=== PATIENT | female | born 1955 | race Caucasian/White ===

== ENCOUNTER 2019-06-01 08:55 | Inpatient (IN) | payer OTHER, SELFPAY ==
[2019-06-01] MEDS ORDERED: ALBUTEROL 2.5 MG/3 ML NEB SOL ONE (09:10)
[2019-06-01] MEDS ORDERED: IPRATROPIUM BROM 0.5MG/2.5ML ONE (09:10)
[2019-06-01] MEDS ORDERED: METHYLPREDNISOLONE 125 MG INJ ONE (09:22)
[2019-06-01] MEDS ORDERED: HYDROCODONE/CHLORPHEN 5 ML/OSYR ONE (09:47)
[2019-06-01 09:53] LABS: Absolute Lymphocytes (CBC) 2.4 K/uL (0.7-4.9); Basophils % 0.7 % (0-1.3); Hematocrit 47.4 % (36.0-45.0); Lymphocytes % 16.1 % (15.3-44.8); MPV 9.3 fL (7.6-11.3); RBC Red Blood Cell Count 5.43 M/uL (3.86-4.86)
[2019-06-01 09:54] LABS: Protime INR 1.12
--- NOTE | 2019-06-01 09:54 | RAD REPORT ---
EXAM DESCRIPTION: RAD - Chest Single View - 06/01/2019 9:44 am CLINICAL HISTORY: Productive cough;SOB Chest pain. COMPARISON: No comparisons FINDINGS: Portable technique limits examination quality. The lungs are mildly emphysematous but grossly clear. The heart is normal in size. No displaced fract ures. IMPRESSION: Mild COPD.
[2019-06-01 10:11] LABS: ALT/SGPT 43 U/L (12-78); AST/SGOT 43 U/L (15-37); Albumin 3.6 g/dL (3.4-5.0); Alkaline Phosphatase 106 U/L (45-117); BUN Blood Urea Nitrogen 8 mg/dL (7-18); Bicarbonate 31 mmol/L (21-32); Bilirubin Direct 0.5 mg/dL (0-0.2); Bilirubin Total 1.3 mg/dL (0.2-1.0); Glucose Level 144 mg/dL (74-106); Magnesium 2.4 mg/dL (1.8-2.4); NT PRO-BNP 176 pg/mL (<125); Potassium 3.6 mmol/L (3.5-5.1); Protein, Total 8.8 g/dL (6.4-8.2); Sodium Level 139 mmol/L (136-145); Troponin (Emerg Dept Use Only) < 0.02 ng/mL (0.0-0.045)
[2019-06-01] MEDS ORDERED: levoFLOXacin 750 MG TAB ONE (10:44)
[2019-06-01] MEDS ORDERED: ALBUTEROL 2.5 MG/3 ML NEB SOL NEB PRN (10:53)
--- NOTE | 2019-06-01 10:53 | ER ---
Nurse's Notes [facility] Name: Leona Blackman Age: 64 yrs Sex: Female : 1955 Arrival Date: 06/01/2019 Time: 08:56 Bed 17 Private MD: Diagnosis: Chronic obstructive pulmonary disease with acute lower respiratory infection;Hypoxemia Presentation: 06/01 09:15 Presenting complaint: Patient states: cough, congestion for 10 days, intermittent iw fever/chills, rib pain, was sent by Gretchen Redd for low O2 sat. Transition of care: patient was not received from another setting of care. Onset of symptoms was May 22, 2019. Risk Assessment: Do you want to hurt yourself or someone else? Patient reports no desire to harm self or others. Initial Sepsis Screen: Does the patient meet any 2 criteria? HR > 90 bpm. Does the patient have a suspected source of infection? Yes: Productive cough/pneumonia. Care prior to arrival: None. 09:15 Method Of Arrival: Wheelchair iw 09:15 Acuity: DELVIN 2 iw Historical: - Allergies: 09:15 Codeine; iw - Home Meds: 09:23 aspirin 81 mg Oral TbEC 1 tab once daily [Active]; omeprazole 40 mg Oral cpDR 1 cap iw once daily [Active]; - PMHx: 09:23 Cancer, Breast; iw - PSHx: 09:23 partial mastectomy-L; Hysterectomy; Tonsillectomy; iw - Immunization history:: Adult Immunizations not up to date. - Social history:: Smoking status: Patient uses tobacco products, unknown amount. - Ebola Screening: : Patient negative for fever greater than or equal to 101.5 degrees Fahrenheit, and additional compatible Ebola Virus Disease symptoms Patient denies exposure to infectious person Patient denies travel to an Ebola-affected area in the 21 days before illness onset No symptoms or risks identified at this time. Screenin:11 Abuse screen: Denies threats or abuse. Denies injuries from another. Nutritional jl7 screening: No deficits noted. Tuberculosis screening: No symptoms or risk factors identified. Fall Risk IV access (20 points). Total Sood Fall Scale indicates No Risk (0-24 pts). Assessment: 09:15 General: Appears in no apparent distress. uncomfortable, Behavior is calm, cooperative, em appropriate for age, Reports fever for > 3 days. Pain: Denies pain. Neuro: Level of Consciousness is awake, alert, obeys commands, Oriented to person, place, time, situation, Appropriate for age. Cardiovascular: Capillary refill < 3 seconds Patient's skin is warm and dry. Rhythm is sinus rhythm. Respiratory: Reports shortness of breath at rest on exertion cough that is productive, pain with cough since 1 week Airway is patent Respiratory effort is even, unlabored, Respiratory pattern is regular, symmetrical, Breath sounds with wheezes bilaterally. GI: Abdomen is round non-distended, Patient currently denies nausea, vomiting. Derm: Skin is intact, is healthy with good turgor, Skin is pink, warm \T\ dry. Musculoskeletal: Capillary refill < 3 seconds, Range of motion: intact in all extremities. 09:57 Reassessment: Patient appears in no apparent distress at this time. Patient and/or em family updated on plan of care and expected duration. Pain level reassessed. Patient is alert, oriented x 3, equal unlabored respirations, skin warm/dry/pink. Patient states symptoms have improved. 11:00 Reassessment: Patient appears in no apparent distress at this time. Patient and/or em family updated on plan of care and expected duration. Pain level reassessed. Patient is alert, oriented x 3, equal unlabored respirations, skin warm/dry/pink. 12:10 Reassessment: Patient appears in no apparent distress at this time. Patient and/or em family updated on plan of care and expected duration. Pain level reassessed. Patient is alert, oriented x 3, equal unlabored respirations, skin warm/dry/pink. Patient denies pain at this time. Patient states feeling better. Patient states symptoms have improved. Vital Signs: 09:13 BP 173 / 89; Pulse 100; Resp 20 S; Temp 98.0; Pulse Ox 85% on R/A; Weight 113.4 kg; iw Height 5 ft. 4 in. (162.56 cm); Pain 0/10; 09:15 Pulse Ox 92% on 2 lpm NC; em 10:28 BP 141 / 68; Pulse 102; Resp 20; Pulse Ox 93% on 2 lpm NC; Pain 0/10; em 12:08 BP 159 / 77; Pulse 95; Resp 20; Temp 98.0; Pulse Ox 94% on 2 lpm NC; Pain 0/10; em 09:13 Body Mass Index 42.91 (113.40 kg, 162.56 cm) iw 09:15 placed on 2 L via NC em ED Course: 08:56 Patient arrived in ED. mr 09:00 Darrin Mays PA is PHCP. cp 09:00 Marco A Kohli MD is Attending Physician. cp 09:03 Jon Hollins, RN is Primary Nurse. em 09:11 Patient has correct armband on for positive identification. Placed in gown. Bed in low jl7 position. Call light in reach. Side rails up X 1. telemetry monitor on. Pulse ox on. NIBP on. 09:11 Arm band placed on. em 09:17 Triage completed. iw 09:30 Initial lab(s) drawn, by me, sent to lab. Inserted saline lock: 22 gauge in right em antecubital area, using aseptic technique. Blood collected. 09:43 XRAY Chest (1 view) In Process Unspecified. EDMS 09:44 EKG done, by technical service rep. reviewed by Marco A Kohli MD. tc 10:51 Prince Hawkins MD is Hospitalizing Provider. cp 12:30 No provider procedures requiring assistance completed. Patient admitted, IV remains in em place. Administered Medications: 09:13 Drug: Albuterol - atroVENT (3:1) (2.5 mg - 0.5 mg) 3 ml Route: Nebulizer; em 09:53 Follow up: Response: No adverse reaction; Marked relief of symptoms; Vomiting decreased em 09:13 Not Given (Duplicate Order): Albuterol - atroVENT (3:1) (2.5 mg - 0.5 mg) 3 ml em Nebulizer once 09:32 Drug: SOLU-Medrol 125 mg Route: IVP; Site: right antecubital; em 09:53 Follow up: Response: No adverse reaction em 10:00 Drug: Tussionex Pennkinetic ER 5 ml Route: PO; em 10:36 Follow up: Response: No adverse reaction; Marked relief of symptoms; RASS: Alert and em Calm (0) 10:17 CANCELLED (Physician Discretion): LevaQUIN 750 mg PO once cp 10:27 Drug: NS 0.9% 500 ml Route: IV; Rate: 500 ml/hr; Site: right antecubital; em 10:59 Follow up: IV Status: Completed infusion; IV Intake: 500ml iw 10:59 Drug: NS 0.9% 500 ml Route: IV; Rate: 100 ml/hr; Site: right antecubital; em 12:33 Follow up: IV Status: Infusion continued upon admission; IV Intake: 100ml em 10:59 Drug: LevaQUIN 750 mg Route: PO; em 11:45 Follow up: Response: No adverse reaction iw 10:59 Drug: Magnesium Sulfate 1 grams Route: IVPB; Infused Over: 1 hrs; Site: right em antecubital; 11:45 Follow up: Response: No adverse reaction; IV Status: Completed infusion; IV Intake: iw 100ml Intake: 10:59 IV: 500ml; Total: 500ml. iw 11:45 IV: 100ml; Total: 600ml. iw 12:33 IV: 100ml; Total: 700ml. em Outcome: 10:52 Decision to Hospitalize by Provider. cp 12:30 Admitted to Med/surg accompanied by tech, family with patient, via wheelchair, room em 213, with oxygen, with chart, Report called to LETICIA Fiore 12:30 Condition: good 12:30 Instructed on the need for admit, Demonstrated understanding of instructions. 12:33 Patient left the ED. em Signatures: Dispatcher [employer] [facility] Greta Garrett Edgar RN LETICIA Zohra Cabrera RN RN Ramya Rapp, youth ministry director EKG Darrin Ornelas PA PA cp Leal, Jahala RN RN jl7 Corrections: (The following items were deleted from the chart) 09:15 09:12 Allergies: No Known Allergies; jl7 iw 09:22 09:15 Initial Sepsis Screen: Does the patient meet any 2 criteria? RR > 20 per min. HR iw > 90 bpm. Does the patient have a suspected source of infection? Yes: Productive cough/pneumonia iw 12:10 12:08 BP 159 / 77; Pulse 20bpm; Resp 20bpm; Pulse Ox 94% 2 lpm Nasal Cannula; Temp em 98.0F; Pain 0/10; em
--- NOTE | 2019-06-01 10:53 | EDPHYS ---
Physician Documentation [facility] Name: Leona Blackman Age: 64 yrs Sex: Female : 1955 Arrival Date: 06/01/2019 Time: 08:56 Bed 17 Private MD: ED Physician Marco A Kohli HPI: 06/01 09:25 This 64 yrs old Female presents to ER via Wheelchair with complaints of cp Breathing Difficulty. 09:25 The patient has shortness of breath at rest. Onset: The symptoms/episode began/occurred cp last week. Duration: The symptoms are continuous, and are steadily getting worse. Associated signs and symptoms: Pertinent positives: productive cough, Pertinent negatives: chest pain, diaphoresis, fever, hemoptysis, vomiting. Severity of symptoms: in the emergency department the symptoms are unchanged. The patient has been recently seen by a physician: the patient's primary care provider, earlier today, with similar presenting complaints, and was sent to the [facility] Emergency Department for further evaluation. Historical: - Allergies: 09:15 Codeine; iw - Home Meds: :23 aspirin 81 mg Oral TbEC 1 tab once daily [Active]; omeprazole 40 mg Oral cpDR 1 cap iw once daily [Active]; - PMHx: 09:23 Cancer, Breast; iw - PSHx: 09:23 partial mastectomy-L; Hysterectomy; Tonsillectomy; iw - Immunization history:: Adult Immunizations not up to date. - Social history:: Smoking status: Patient uses tobacco products, unknown amount. - Ebola Screening: : Patient negative for fever greater than or equal to 101.5 degrees Fahrenheit, and additional compatible Ebola Virus Disease symptoms Patient denies exposure to infectious person Patient denies travel to an Ebola-affected area in the 21 days before illness onset No symptoms or risks identified at this time. ROS: 09:30 Eyes: Negative for injury, pain, redness, and discharge. cp 09:30 Constitutional: Negative for body aches, chills, fever, poor PO intake. 09:30 ENT: Negative for drainage from ear(s), ear pain, sore throat, difficulty swallowing, difficulty handling secretions. 09:30 Cardiovascular: Negative for chest pain, edema, palpitations. 09:30 Respiratory: Positive for cough, "sounds productive", shortness of breath, at rest. wheezing, Negative for hemoptysis. 09:30 Abdomen/GI: Negative for abdominal pain, vomiting, diarrhea, constipation. 09:30 Back: Negative for pain at rest, pain with movement, radiated pain. 09:30 Skin: Negative for rash. 09:30 Neuro: Negative for altered mental status, headache, syncope, weakness. 09:30 All other systems are negative. Exam: 09:30 ECG was reviewed by the Attending Physician. cp 09:35 Constitutional: The patient appears in no acute distress, alert, awake, cp non-diaphoretic, non-toxic, well developed, well nourished, obese. 09:35 Head/Face: Normocephalic, atraumatic. cp 09:35 Eyes: Periorbital structures: appear normal, Conjunctiva: normal, no exudate, no cp injection, Sclera: no appreciated abnormality, Lids and lashes: appear normal, bilaterally. 09:35 ENT: External ear(s): are unremarkable, Ear canal(s): are normal, clear, TM's: dullness, bilaterally, Nose: is normal, Mouth: Lips: moist, Oral mucosa: pink and intact, moist, Posterior pharynx: is normal, airway is patent, no erythema, no exudate. 09:35 Neck: ROM/movement: Meningeal signs: are not present, nuchal rigidity, is not appreciated. 09:35 Chest/axilla: Inspection: normal, Palpation: is normal, no crepitus, no tenderness. 09:35 Cardiovascular: Rate: tachycardic, Rhythm: regular, Heart sounds: murmur, not cp appreciated, Edema: is not appreciated, JVD: is not appreciated. 09:35 Respiratory: the patient does not display signs of respiratory distress, Respirations: labored breathing, that is mild, intercostal retractions, are absent, Breath sounds: decreased breath sounds, that are moderate, throughout, stridor, is not appreciated, + upper airway congestion. wheezing: that is mild, is heard diffusely. 09:35 Abdomen/GI: Exam negative for discomfort, distension, guarding, Inspection: abdomen appears normal. 09:35 Back: pain, is absent, ROM is normal. 09:35 Skin: no rash present. 09:35 Neuro: Orientation: to person, place \\T\\ time. Mentation: is normal, Motor: moves all fours, strength is normal. Vital Signs: 09:13 BP 173 / 89; Pulse 100; Resp 20 S; Temp 98.0; Pulse Ox 85% on R/A; Weight 113.4 kg; iw Height 5 ft. 4 in. (162.56 cm); Pain 0/10; 09:15 Pulse Ox 92% on 2 lpm NC; em 10:28 BP 141 / 68; Pulse 102; Resp 20; Pulse Ox 93% on 2 lpm NC; Pain 0/10; em 12:08 BP 159 / 77; Pulse 95; Resp 20; Temp 98.0; Pulse Ox 94% on 2 lpm NC; Pain 0/10; em 09:13 Body Mass Index 42.91 (113.40 kg, 162.56 cm) iw 09:15 placed on 2 L via NC em MDM: 09:01 Patient medically screened. cp 09:30 Differential diagnosis: asthma, Bronchitis CHF exacerbation, Chronic Obstructive cp Pulmonary Disease pneumonia, pulmonary edema, Pulmonary Embolism Sepsis. 10:20 Data reviewed: vital signs, nurses notes, lab test result(s), EKG, radiologic studies, cp plain films, I have discussed the patient's presentation/case with the attending Emergency Department Physician; and as a result, I will admit patient. 10:20 Antibiotic administration: Levaquin given. Test interpretation: by ED physician or cp midlevel provider: ECG, plain radiologic studies, chest xray negative for infiltrates. 06/01 09:12 Order name: Basic Metabolic Panel; Complete Time: 10:12 cp 06/01 10:13 Interpretation: Normal except: GLUC 144; GFR 68. cp 06/01 09:12 Order name: CBC with Diff; Complete Time: 09:57 cp 06/01 09:57 Interpretation: Normal except: WBC 14.9; RBC 5.43; HGB 15.2; HCT 47.4; BETZY% 74.1; NEUT cp A 11.0. 06/01 09:12 Order name: LFT's; Complete Time: 10:12 cp 06/01 10:13 Interpretation: Normal except: AST 43; BILIT 1.3; BILID 0.5; TP 8.8; GLOB 5.2; A/G 0.7. cp 06/01 09:12 Order name: Magnesium; Complete Time: 10:12 cp 06/01 09:12 Order name: NT PRO-BNP; Complete Time: 10:12 cp 06/01 09:12 Order name: PT-INR; Complete Time: 09:57 cp 06/01 09:12 Order name: Troponin (emerg Dept Use Only); Complete Time: 10:12 cp 06/01 09:13 Order name: Influenza Screen (a \\T\\ B); Complete Time: 10:12 cp 06/01 09:14 Order name: XRAY Chest (1 view); Complete Time: 09:57 cp 06/01 09:57 Interpretation: Report review. cp 06/01 09:12 Order name: EKG; Complete Time: 09:12 cp 06/01 09:12 Order name: Cardiac monitoring; Complete Time: 09:14 cp 06/01 09:12 Order name: EKG - Nurse/Tech; Complete Time: 09:14 cp 06/01 09:12 Order name: IV Saline Lock; Complete Time: 09:13 cp 06/01 09:12 Order name: Labs collected and sent; Complete Time: 09:14 cp 06/01 09:12 Order name: O2 Per Protocol; Complete Time: 09:14 cp 06/01 09:12 Order name: O2 Sat Monitoring; Complete Time: 09:14 cp EC:30 Rate is 96 beats/min. Rhythm is regular. MN interval is normal. QRS interval is normal. cp QT interval is prolonged at 380 msec. Interpreted by me. Reviewed by me. Administered Medications: 09:13 Drug: Albuterol - atroVENT (3:1) (2.5 mg - 0.5 mg) 3 ml Route: Nebulizer; em 09:53 Follow up: Response: No adverse reaction; Marked relief of symptoms; Vomiting decreased em 09:13 Not Given (Duplicate Order): Albuterol - atroVENT (3:1) (2.5 mg - 0.5 mg) 3 ml em Nebulizer once 09:32 Drug: SOLU-Medrol 125 mg Route: IVP; Site: right antecubital; em 09:53 Follow up: Response: No adverse reaction em 10:00 Drug: Tussionex Pennkinetic ER 5 ml Route: PO; em 10:36 Follow up: Response: No adverse reaction; Marked relief of symptoms; RASS: Alert and em Calm (0) 10:17 CANCELLED (Physician Discretion): LevaQUIN 750 mg PO once cp 10:27 Drug: NS 0.9% 500 ml Route: IV; Rate: 500 ml/hr; Site: right antecubital; em 10:59 Follow up: IV Status: Completed infusion; IV Intake: 500ml iw 10:59 Drug: NS 0.9% 500 ml Route: IV; Rate: 100 ml/hr; Site: right antecubital; em 12:33 Follow up: IV Status: Infusion continued upon admission; IV Intake: 100ml em 10:59 Drug: LevaQUIN 750 mg Route: PO; em 11:45 Follow up: Response: No adverse reaction iw 10:59 Drug: Magnesium Sulfate 1 grams Route: IVPB; Infused Over: 1 hrs; Site: right em antecubital; 11:45 Follow up: Response: No adverse reaction; IV Status: Completed infusion; IV Intake: iw 100ml Disposition: 13:52 Co-signature as Attending Physician, Marco A Kohli MD I agree with the assessment and kdr plan of care. Disposition: 06/01/19 10:52 Hospitalization ordered by Prince Ross for Inpatient Admission. Preliminary diagnosis are Chronic obstructive pulmonary disease with acute lower respiratory infection, Hypoxemia. - Bed requested for Telemetry/MedSurg (Inpatient). - Status is Inpatient Admission. em - Condition is Stable. - Problem is new. - Symptoms have improved. UTI on Admission? No Signatures: Dispatcher [employer] Marsha Bruner Kevin, MD MD [facility] Jon Hollins RN RN em Zohra Cabrera RN RN Darrin Mays PA PA cp Trent Austin RN RN jl7 Corrections: (The following items were deleted from the chart) 09:15 09:12 Allergies: No Known Allergies; jl7 iw 09:18 09:12 Chest Single View+RAD.RAD.BRZ ordered. EDMS EDMS 10:17 10:16 LevaQUIN 750 mg PO once ordered. cp cp 11:01 10:52 Hospitalization Ordered by Prince Ross HUTSON for Inpatient Admission. Preliminary cp diagnosis is Chronic obstructive pulmonary disease with acute lower respiratory infection. Bed requested for Telemetry/MedSurg (Inpatient). Status is Inpatient Admission. Condition is Stable. Problem is new. Symptoms have improved. UTI on Admission? No. cp 11:44 11:01 06/01/2019 10:52 Hospitalization Ordered by Prince Ross HUTSON for Inpatient bd Admission. Preliminary diagnosis is Chronic obstructive pulmonary disease with acute lower respiratory infection; Hypoxemia. Bed requested for Telemetry/MedSurg (Inpatient). Status is Inpatient Admission. Condition is Stable. Problem is new. Symptoms have improved. UTI on Admission? No. cp 12:33 11:44 06/01/2019 10:52 Hospitalization Ordered by Prince Ross HUTSON for Inpatient em Admission. Preliminary diagnosis is Chronic obstructive pulmonary disease with acute lower respiratory infection; Hypoxemia. Bed requested for Telemetry/MedSurg (Inpatient). Status is Inpatient Admission. Condition is Stable. Problem is new. Symptoms have improved. UTI on Admission? No. bd
[2019-06-01] MEDS ORDERED: MAGNESIUM SULFATE 1 gm IVPB 1 GM/100 ML BAG IV ONE (10:56)
[2019-06-01 13:12] VITALS: BMI 42.5
--- NOTE | 2019-06-01 13:34 | P.HP ---
Certification for Inpatient Patient admitted to: Observation With expected LOS: <2 Midnights Patient will require the following post-hospital care: Home Health Services Practitioner: I am a practitioner with admitting privileges, knowledge of patient current condition, hospital course, and medical plan of care. Services: Services provided to patient in accordance with Admission requirements found in Title 42 Section 412.3 of the Code of Federal Regulations Patient History Date of Service: 06/01/19 History of Present Illness: Patient is a 64-year-old female with unknown past medical history of breast cancer diagnosed in 2001. She underwent a lumpectomy followed by radiation and chemotherapy. She has had a reconstructive breast surgery and and normal mammogram in 2018. She is also a tobacco smoker, only takes aspirin on omeprazole chronically. She presented the ER upon recommendation by her PCP after she was found to be hypoxic in the office. Patient has been battling flu-like symptoms for the past week. Her symptoms were and mainly malaise, productive cough, fever and chills. The symptoms progressed with dyspnea, which med air finally decide to see her PCP today. She was found to be hypoxic and transferred to the ER. She was also hypoxic in the ER. Her chest x-ray with as without evidence of infiltrate or focal consolidations but had findings suggestive of emphysema. She was placed on nebulizer therapy and received a dose of systemic corticosteroids. She is being admitted for acute COPD exacerbation. Allergies No Known Allergies Allergy (Verified 07/26/15 06:27) Home Medications: Aspirin 81 mg PO DAILY 07/26/15 Omeprazole 20 mg PO DAILY 07/26/15 - Past Medical/Surgical History Has patient received pneumonia vaccine in the past: No Diabetic: No -: breast Cancer -: left-sided partial mastectomy and reconstruction -: hysterectomy -: tonsillectomy -: hemorroidectomy - Family History fatgher -: Heart disease Notes: Hx: heart attack ; triple bypass sx - Social History Smoking Status: Former smoker Alcohol use: Yes Caffeine use: Yes Place of Residence: Home Physical Examination - Vital Signs Temperature: 98.0 F Blood Pressure: 159/77 Pulse: 95 Respirations: 20 - Physical Exam General: Alert, Cooperative, Acute distress, Obese HEENT: Atraumatic, Normocephalic, EOMI Neck: Supple Respiratory: Diminished, Expiratory wheezes, Inspiratory wheezes Cardiovascular: No edema, Normal pulses, Regular rate/rhythm, Normal S1 S2 Gastrointestinal: Normal bowel sounds, Soft and benign, Non-distended Musculoskeletal: No swelling, No erythema, No tenderness, Warmth Integumentary: Warmth Neurological: Normal speech, Normal strength at 5/5 x4 extr, Normal affect - Studies Laboratory Data (last 24 hrs) 06/01/19 09:30: PT 13.2 H, INR 1.12 06/01/19 09:30: WBC 14.9 H, Hgb 15.2 H, Hct 47.4 H, Plt Count 361 06/01/19 09:30: Sodium 139, Potassium 3.6, BUN 8, Creatinine 0.84, Glucose 144 H , Magnesium 2.4, Total Bilirubin 1.3 H, AST 43 H, ALT 43, Alkaline Phosphatase 106 Microbiology Data (last 24 hrs): 06/01/19 09:30 Nasopharnyx Influenza Type A Antigen Screen - Final 06/01/19 09:30 Nasopharnyx Influenza Type B Antigen Screen - Final Assessment and Plan - Problems (Diagnosis) (1) Acute exacerbation of chronic obstructive pulmonary disease (COPD) Current Visit: Yes Status: Acute (2) Hypertension Current Visit: Yes Status: Acute (3) GERD (gastroesophageal reflux disease) Current Visit: Yes Status: Acute (4) Acute respiratory failure with hypoxia Current Visit: Yes Status: Acute - Advance Directives Does patient have a Living Will: No Does patient have a Durable POA for Healthcare: No Physician Review Additional Text: Impression: Patient is a 64-year-old female with morbid obesity, tobacco smoking and acid reflux disease currently admitted to the hospital with acute COPD exacerbation. She has no known history of COPD and does not take any medications at home. She is currently on supplemental oxygen via nasal cannula and has been started on antibiotics, nebulizer and systemic corticosteroids. 1. Acute hypoxic respiratory failure. 2. This acute COPD exacerbation 3. Morbid obesity 4. Hypertension 5. Acid reflux disease Plan: 1. Admit under observation 2. Start levofloxacin, Solu-Medrol q.8 hr and duo nebs from q.4 hr p.r.n. 3. Start patient on nifedipine for hypertension 4. Risk stratify patient with lipid panel and hemoglobin A1c given morbid obesity 5. Resume PPI
[2019-06-01] MEDS: PANTOPRAZOLE 40MG TABLET PO SCH (13:39)
[2019-06-01] MEDS: IPRATROPIUM BROM 0.5MG/2.5ML NEB SCH ×2 (13:42→20:30)
[2019-06-01] MEDS: ALBUTEROL 2.5 MG/3 ML NEB SOL NEB SCH ×2 (13:42→20:00)
--- NOTE | 2019-06-01 14:39 | EKG ---
Test Date: 2019-06-01 Test Time: 09:18:15 Superintendent Division: TT MEASUREMENT RESULTS: Intervals: Rate: 96 CA: 130 QRSD: 94 QT: 380 QTc: 480 Chauncey: P: 83 CA: 130 QRS: 41 T: 85 INTERPRETIVE STATEMENTS: Normal sinus rhythm Right atrial enlargement Nonspecific ST and T wave abnormality Prolonged QT Abnormal ECG No previous ECG available for comparison Electronically Signed On 06-01-19 14:38:26 GLUER MACHINE OPERATOR by Jose Gold
--- NOTE | 2019-06-01 16:02 | RAD REPORT ---
EXAM DESCRIPTION: CT - Chest For Pe Angio - 06/01/2019 3:42 pm CLINICAL HISTORY: sob COMPARISON: None. TECHNIQUE: Dynamically enhanced axial 3 mm thick images of the chest were obtained during administra tion of <100> mL Isovue 370 IV contrast. Coronal and oblique reconstruction images were generated and reviewed. Exam utilizes a protocol for optimal evaluation of pulmonary arterial tree. Maximum intensity projections 3D imaging was utilized All CT scans are performed using dose optimization technique as appropriate and may include automated exposure control or mA/KV adjustment according to patient size. FINDINGS: A pulmonary embolus is not seen. A thoracic aortic aneurysm is not noted. Bovine aortic A pleural effusion is not seen. A pericardial effusion is not seen. Mild tree-in-bud opacities right upper lobe. Mild ground-glass opacities right middle and right lower lobes. Mild lingular opacity IMPRESSION: Negative for a pulmonary embolism. Mild bilateral pulmonary opacities may indicate pneumonia or pneumonitis
[2019-06-01] MEDS: METHYLPREDNISOLONE 125 MG INJ IV SCH (16:06)
[2019-06-01] MEDS ORDERED: NIFEDIPINE XL 30 MG TABLET PO SCH (18:50)
[2019-06-01] MEDS ORDERED: HYDRALAZINE HCL 20 MG/ML VIAL IV PRN (18:50)
[2019-06-01] MEDS: ACETAMINOPHEN 325 MG TABLET PO PRN (21:09)
[2019-06-02] MEDS: METHYLPREDNISOLONE 125 MG INJ IV SCH ×3 (00:20→17:03)
[2019-06-02] MEDS ORDERED: ALBUTEROL 2.5 MG/3 ML NEB SOL ONE ×4 (01:47→19:39)
[2019-06-02] MEDS ORDERED: IPRATROPIUM BROM 0.5MG/2.5ML ONE ×4 (01:47→19:40)
[2019-06-02] MEDS: IPRATROPIUM BROM 0.5MG/2.5ML NEB SCH ×4 (02:00→19:46)
[2019-06-02] MEDS: ALBUTEROL 2.5 MG/3 ML NEB SOL NEB SCH ×4 (02:00→19:46)
[2019-06-02] MEDS ORDERED: ACETAMINOPHEN 325 MG TABLET ONE (04:31)
[2019-06-02] MEDS ORDERED: TRAMADOL HCL 50 MG TAB PO PRN (04:34)
[2019-06-02] MEDS: ACETAMINOPHEN 325 MG TABLET PO PRN (05:48)
[2019-06-02] MEDS ORDERED: PANTOPRAZOLE 40MG TABLET PO ONE (06:40)
[2019-06-02] MEDS: PANTOPRAZOLE 40MG TABLET PO SCH (07:14)
[2019-06-02] MEDS ORDERED: NIFEDIPINE XL 90 MG TABLET PO ONE (08:20)
[2019-06-02] MEDS ORDERED: METHYLPREDNISOLONE 125 MG INJ ONE ×2 (08:20→15:43)
[2019-06-02] MEDS ORDERED: ASPIRIN EC 81 MG TAB PO ONE (08:21)
[2019-06-02] MEDS ORDERED: Levofloxacin 750mg IV 750 MG/150 ML BAG IV ONE (08:21)
[2019-06-02 08:31] LABS: Absolute Lymphocytes (CBC) 1.2 K/uL (0.7-4.9); Basophils % 0.4 % (0-1.3); Hematocrit 42.8 % (36.0-45.0); Lymphocytes % 6.8 % (15.3-44.8); MPV 9.4 fL (7.6-11.3); RBC Red Blood Cell Count 4.97 M/uL (3.86-4.86)
[2019-06-02] MEDS: NIFEDIPINE XL 60 MG TABLET PO SCH (08:55)
[2019-06-02] MEDS: Levofloxacin 750mg IV 750 MG/150 ML BAG IV SCH (08:56)
[2019-06-02] MEDS: ASPIRIN 81 MG CHEWABLE TABLET PO SCH (08:57)
[2019-06-02] MEDS: NA CHLORIDE 0.9% 1,000 ML IV SCH ×3 (09:01→23:06)
[2019-06-02 11:33] LABS: Blood Morphology Comment NOT SEEN (NOT SEEN); Platelet Estimate ADEQ
--- NOTE | 2019-06-02 16:19 | P.PN ---
Subjective Date of Service: 06/02/19 Subjective: No new changes (Except for elevated blood pressure. Symptomatically doing better. Afebrile Overnight. No cough or dyspnea.) Physical Examination - Vital Signs Temperature: 98.4 F Blood Pressure: 125/67 Pulse: 91 Respirations: 18 Pulse Ox (%): 92 - Physical Exam General: Alert, In no apparent distress, Cooperative HEENT: Atraumatic, Normocephalic, EOMI Neck: Supple Respiratory: Clear to auscultation bilaterally, Normal air movement Cardiovascular: Normal pulses, Regular rate/rhythm, Normal S1 S2 Gastrointestinal: Normal bowel sounds, Soft and benign, Non-distended Musculoskeletal: No swelling, No contractures, No erythema Integumentary: Warmth Neurological: Normal speech, Normal affect - Studies Microbiology Data (last 24 hrs): 06/01/19 16:16 Sputum Gram Stain - Final Assessment & Plan - Problems (Diagnosis) (1) Acute exacerbation of chronic obstructive pulmonary disease (COPD) Current Visit: Yes Status: Acute (2) Hypertension Current Visit: Yes Status: Acute (3) GERD (gastroesophageal reflux disease) Current Visit: Yes Status: Acute (4) Acute respiratory failure with hypoxia Current Visit: Yes Status: Acute Physician Review Additional Text: Impression: Patient is a 64-year-old female with morbid obesity, tobacco smoking and acid reflux disease currently admitted to the hospital with acute COPD exacerbation. Chest x-ray did not reveal infiltrates. Due to hypoxia elevated D-dimer and a history of cancer a CT scan of the chest was obtained. No pulmonary embolus about evidence of multi focal pneumonia. Her hospital course was complicated by a elevated lactic acid and concern for sepsis. Blood cultures have been ordered. She is still on supplemental oxygen via nasal cannula. 1. Acute hypoxic respiratory failure. 2. This acute COPD exacerbation 3. Morbid obesity 4. Hypertension 5. Acid reflux disease Plan: 1. Patient would benefit from inpatient admission 2. Continue levofloxacin, Solu-Medrol q.8 hr and duo nebs from q.4 hr p.r.n. 3. IV fluid infusion started for lactic acidosis. Repeat lactic acid pending 4. Follow-up blood cultures 5. Continue nifedipine for hypertension
[2019-06-03] MEDS ORDERED: METHYLPREDNISOLONE 125 MG INJ ONE ×2 (00:10→08:52)
[2019-06-03] MEDS: METHYLPREDNISOLONE 125 MG INJ IV SCH ×2 (00:37→09:09)
[2019-06-03] MEDS ORDERED: ALBUTEROL 2.5 MG/3 ML NEB SOL ONE ×3 (02:04→12:49)
[2019-06-03] MEDS ORDERED: IPRATROPIUM BROM 0.5MG/2.5ML ONE ×3 (02:04→12:49)
[2019-06-03] MEDS: IPRATROPIUM BROM 0.5MG/2.5ML NEB SCH ×4 (02:05→20:10)
[2019-06-03] MEDS: ALBUTEROL 2.5 MG/3 ML NEB SOL NEB SCH ×4 (02:05→20:10)
[2019-06-03] MEDS ORDERED: PANTOPRAZOLE 40MG TABLET PO ONE (04:56)
[2019-06-03] MEDS: NA CHLORIDE 0.9% 1,000 ML IV SCH ×3 (05:00→15:00)
[2019-06-03] MEDS: PANTOPRAZOLE 40MG TABLET PO SCH (05:07)
[2019-06-03] MEDS ORDERED: ASPIRIN 81 MG CHEWABLE TABLET ONE (08:53)
[2019-06-03] MEDS ORDERED: NIFEDIPINE XL 60 MG TABLET PO ONE (08:53)
[2019-06-03] MEDS ORDERED: Levofloxacin 750mg IV 750 MG/150 ML BAG IV ONE (08:54)
[2019-06-03] MEDS: ASPIRIN 81 MG CHEWABLE TABLET PO SCH (09:09)
[2019-06-03] MEDS: NIFEDIPINE XL 60 MG TABLET PO SCH (09:09)
[2019-06-03] MEDS: Levofloxacin 750mg IV 750 MG/150 ML BAG IV SCH (09:09)
[2019-06-03 09:33] LABS: Basophils % 0.3 % (0-1.3); Hematocrit 42.4 % (36.0-45.0); Lymphocytes % 5.2 % (15.3-44.8); MPV 9.5 fL (7.6-11.3); RBC Red Blood Cell Count 4.84 M/uL (3.86-4.86)
[2019-06-03 09:48] LABS: Magnesium 2.3 mg/dL (1.8-2.4); Phosphorus 2.8 mg/dL (2.5-4.9)
[2019-06-03 11:04] LABS: Platelet Estimate ADEQ; Platelets, Giant FEW PRESENT; Urine White Blood Cell Casts OK
[2019-06-03 11:05] LABS: Blood Morphology Comment NOT SEEN (NOT SEEN)
--- NOTE | 2019-06-03 11:25 | RAD REPORT ---
EXAM DESCRIPTION: RAD - Chest Single View - 06/02/2019 11:26 pm CLINICAL HISTORY: 64 years Female PICC Placement COMPARISON: 06/01/2019. FINDINGS: The right PICC tip overlies the SVC. Stable cardiomediastinal silhouette. Soft tissue dens ity at the medial right lung base consistent with an epicardial fat pad. No consolidating infiltrates or pleural effusions. No pneumothorax. There are surgical clips in the left axillary region. IMPRESSION: The right PICC tip overlies the SVC. Electronically signed by: Rashaad Ring MD 06/03/2019 12:19 AM [facility] Due to temporary technical issues with the PACS/Fluency reporting system, reports are being signed by the in house radiologist as a courtesy to ensure prompt reporting. The interpreting radiologist is f ully responsible for the content of the report.
[2019-06-03] MEDS ORDERED: NA CHLORIDE 0.9% 1,000 ML ONE (12:41)
--- NOTE | 2019-06-03 15:31 | P.PN ---
Subjective Date of Service: 06/03/19 Patient is doing better today. Afebrile Overnite. Successfully weaned off oxygen. Physical Examination - Vital Signs Temperature: 97.8 F Blood Pressure: 147/69 Pulse: 88 Respirations: 16 Pulse Ox (%): 95 - Physical Exam General: Alert, In no apparent distress, Cooperative HEENT: Atraumatic, Normocephalic, EOMI Neck: Supple Respiratory: Clear to auscultation bilaterally, Normal air movement Gastrointestinal: Normal bowel sounds, Soft and benign, Non-distended Musculoskeletal: No swelling, No contractures, No erythema Integumentary: Warmth Neurological: Normal speech, Normal affect - Studies Microbiology Data (last 24 hrs): 06/01/19 16:16 Sputum Gram Stain - Final Assessment & Plan - Problems (Diagnosis) (1) Acute exacerbation of chronic obstructive pulmonary disease (COPD) Current Visit: Yes Status: Acute (2) Hypertension Current Visit: Yes Status: Acute (3) GERD (gastroesophageal reflux disease) Current Visit: Yes Status: Acute (4) Acute respiratory failure with hypoxia Current Visit: Yes Status: Acute Physician Review Additional Text: Impression: Patient is a 64-year-old female with morbid obesity, tobacco smoking and acid reflux disease currently admitted to the hospital with acute COPD exacerbation. Chest x-ray did not reveal infiltrates. Due to hypoxia elevated D-dimer and a history of cancer a CT scan of the chest was obtained. No pulmonary embolus but evidence of multi focal pneumonia. Her hospital course was complicated by a elevated lactic acid and concern for sepsis. Blood cultures have been ordered. She has done well on IV fluid, levofloxacin. She has been successfully weaned off oxygen. Her respiratory culture showed presumptive strep pneumonia 1. Acute hypoxic respiratory failure. 2. This acute COPD exacerbation 3. Morbid obesity 4. Hypertension 5. Acid reflux disease Plan: 1. Continue with levofloxacin upon on discharge or switch to Augmentin if strep pneumo confirmed on final cx 2. Transition to oral prednisone and continued duo nebs from q.4 hr p.r.n. 3. Follow-up blood cultures 4. Continue nifedipine for hypertension
[2019-06-04] MEDS: NA CHLORIDE 0.9% 1,000 ML IV SCH ×2 (00:42→12:45)
[2019-06-04] MEDS: IPRATROPIUM BROM 0.5MG/2.5ML NEB SCH ×4 (01:55→19:50)
[2019-06-04] MEDS: ALBUTEROL 2.5 MG/3 ML NEB SOL NEB SCH ×4 (01:55→19:50)
[2019-06-04] MEDS: PANTOPRAZOLE 40MG TABLET PO SCH (05:52)
[2019-06-04 06:27] LABS: Magnesium 2.3 mg/dL (1.8-2.4); Phosphorus 3.1 mg/dL (2.5-4.9)
[2019-06-04] MEDS: NIFEDIPINE XL 60 MG TABLET PO SCH (09:21)
[2019-06-04] MEDS: predniSONE 20 MG TAB PO SCH (09:23)
[2019-06-04] MEDS: Levofloxacin 750mg IV 750 MG/150 ML BAG IV SCH (09:23)
[2019-06-04] MEDS: ASPIRIN 81 MG CHEWABLE TABLET PO SCH (09:23)
--- NOTE | 2019-06-04 12:46 | P.PN ---
Subjective Date of Service: 06/04/19 Subjective: No new changes, Tolerating diet Review of Systems 10-point ROS is otherwise unremarkable Physical Examination - Vital Signs Temperature: 97.5 F Blood Pressure: 140/70 Pulse: 78 Respirations: 20 Pulse Ox (%): 97 - Physical Exam General: Alert, Oriented x3, Obese HEENT: Atraumatic, Normocephalic Neck: Supple, 2+ carotid pulse no bruit Respiratory: Clear to auscultation bilaterally, Normal air movement Cardiovascular: No edema, Normal pulses, Regular rate/rhythm, Normal S1 S2 Gastrointestinal: Normal bowel sounds, Soft and benign Musculoskeletal: No clubbing, No swelling Integumentary: No rashes, No breakdown Neurological: Normal gait, Normal speech, Normal strength at 5/5 x4 extr - Studies Microbiology Data (last 24 hrs): 06/01/19 16:16 Sputum Gram Stain - Final Assessment & Plan - Problems (Diagnosis) (1) Acute exacerbation of chronic obstructive pulmonary disease (COPD) Current Visit: Yes Status: Acute (2) Community acquired pneumonia of both lungs Current Visit: Yes Status: Acute (3) Hypertension Current Visit: Yes Status: Acute (4) Severe sepsis Current Visit: Yes Status: Acute Physician Review: Patient Assessed, Agree with Above Assessment and Plan Physician Review Additional Text: A/P 1. Acute hypoxic respiratory failure. 2. This acute COPD exacerbation 3. Morbid obesity 4. Hypertension 5. Acid reflux disease Plan - improving -still weakness, continue abx for now -will dc IVF - srtill pending full sensixity of resp cx with presumed strep pna - possible dc in am Critical Care: No
[2019-06-04] MEDS: CARBAMIDE PEROXIDE EAR DROPS (15 mL) EACH EAR SCH ×2 (20:34→20:43)
[2019-06-05] MEDS: IPRATROPIUM BROM 0.5MG/2.5ML NEB SCH ×2 (01:16→08:10)
[2019-06-05] MEDS: ALBUTEROL 2.5 MG/3 ML NEB SOL NEB SCH ×2 (01:16→08:10)
[2019-06-05] MEDS: PANTOPRAZOLE 40MG TABLET PO SCH (05:30)
[2019-06-05 06:04] LABS: Absolute Lymphocytes (CBC) 3.5 K/uL (0.7-4.9); Basophils % 1.1 % (0-1.3); Hematocrit 41.2 % (36.0-45.0); MPV 9.4 fL (7.6-11.3)
[2019-06-05 06:10] LABS: Magnesium 2.4 mg/dL (1.8-2.4); Phosphorus 3.5 mg/dL (2.5-4.9)
[2019-06-05 06:13] LABS: Albumin 2.8 g/dL (3.4-5.0); Bilirubin Total 0.3 mg/dL (0.2-1.0); Potassium 3.5 mmol/L (3.5-5.1); Protein, Total 6.7 g/dL (6.4-8.2)
[2019-06-05 08:35] VITALS: O2SAT 93
[2019-06-05 09:10] VITALS: BP 165/92; TEMP 98.8
[2019-06-05] MEDS: NIFEDIPINE XL 60 MG TABLET PO SCH (09:13)
[2019-06-05] MEDS: predniSONE 20 MG TAB PO SCH (09:13)
[2019-06-05] MEDS: CARBAMIDE PEROXIDE EAR DROPS (15 mL) EACH EAR SCH (09:14)
[2019-06-05] MEDS: ASPIRIN 81 MG CHEWABLE TABLET PO SCH (09:14)
[2019-06-05] MEDS: Levofloxacin 750mg IV 750 MG/150 ML BAG IV SCH (09:18)
--- NOTE | 2019-06-05 10:07 | P.DS ---
Admission Date: 06/01/19 Discharge Date: 06/05/19 Discharge Condition: GOOD - Problems (1) Acute exacerbation of chronic obstructive pulmonary disease (COPD) Current Visit: Yes Status: Acute (2) Community acquired pneumonia of both lungs Current Visit: Yes Status: Acute (3) Hypertension Current Visit: Yes Status: Acute (4) Severe sepsis Current Visit: Yes Status: Acute Brief History of Present Illness: History of Present Illness: Patient is a 64-year-old female with unknown past medical history of breast cancer diagnosed in 2001. She underwent a lumpectomy followed by radiation and chemotherapy. She has had a reconstructive breast surgery and and normal mammogram in 2018. She is also a tobacco smoker, only takes aspirin on omeprazole chronically. She presented the ER upon recommendation by her PCP after she was found to be hypoxic in the office. Patient has been battling flu-like symptoms for the past week. Her symptoms were and mainly malaise, productive cough, fever and chills. The symptoms progressed with dyspnea, which med air finally decide to see her PCP today. She was found to be hypoxic and transferred to the ER. She was also hypoxic in the ER. Her chest x-ray with as without evidence of infiltrate or focal consolidations but had findings suggestive of emphysema. She was placed on nebulizer therapy and received a dose of systemic corticosteroids. She is being admitted for acute COPD exacerbation. Hospital Course: Patient was admitted, initially presumed pneumonia with COPD exacerbation. She was started on empirical antibiotics. Sputum culture all grew presumed strep pneumoniae. She was continued on Levaquin. Her shortness of breath or wheezing symptoms resolved. She had ear pressure and was was started on Debrox. She was also noted with elevated blood pressure and started on nifedipine . Her blood pressure has remained controlled now. She will be discharged home today follow-up with her PCP in 1 week. Vital Signs/Physical Exam: Temp Pulse Resp BP Pulse Ox 98.8 F 86 20 165/92 H 95 06/05/19 08:00 06/05/19 09:13 06/05/19 08:00 06/05/19 09:13 06/05/19 08:00 General: Alert, Oriented x3, Obese HEENT: Atraumatic, Normocephalic Neck: Supple, JVD not distended Respiratory: Clear to auscultation bilaterally, Normal air movement Cardiovascular: Normal pulses, Regular rate/rhythm, Normal S1 S2 Gastrointestinal: Normal bowel sounds, Soft and benign, Non-distended Musculoskeletal: No clubbing, No swelling, No contractures Neurological: Normal speech, Normal strength at 5/5 x4 extr, Sensation intact Laboratory Data at Discharge: WBC 12.4 K/uL (4.3-10.9) H D 06/05/19 05:25 Hgb 13.4 g/dL (12.0-15.0) 06/05/19 05:25 Hct 41.2 % (36.0-45.0) 06/05/19 05:25 Plt Count 369 K/uL (152-406) 06/05/19 05:25 PT 13.2 SECONDS (9.5-12.5) H 06/01/19 09:30 INR 1.12 06/01/19 09:30 Sodium 140 mmol/L (136-145) 06/05/19 05:25 Potassium 3.5 mmol/L (3.5-5.1) 06/05/19 05:25 BUN 14 mg/dL (7-18) 06/05/19 05:25 Creatinine 0.68 mg/dL (0.55-1.3) 06/05/19 05:25 Glucose 156 mg/dL (74-106) H 06/05/19 05:25 Phosphorus 3.5 mg/dL (2.5-4.9) 06/05/19 05:25 Magnesium 2.4 mg/dL (1.8-2.4) 06/05/19 05:25 Total Bilirubin 0.3 mg/dL (0.2-1.0) 06/05/19 05:25 AST 23 U/L (15-37) 06/05/19 05:25 ALT 32 U/L (12-78) 06/05/19 05:25 Alkaline Phosphatase 110 U/L (45-117) 06/05/19 05:25 Triglycerides 101 mg/dL (<150) 06/02/19 05:16 Cholesterol 176 mg/dL (<200) 06/02/19 05:16 HDL Cholesterol 51 mg/dL (40-60) 06/02/19 05:16 Cholesterol/HDL Ratio 3.45 06/02/19 05:16 Home Medications: Aspirin 81 mg PO DAILY 07/26/15 Omeprazole 20 mg PO DAILY 07/26/15 Carbamide Peroxide [Debrox*] 10 drops EACH EAR BID #1 btl 06/05/19 Levofloxacin [Levaquin] 500 mg PO DAILY #7 tablet 06/05/19 Nifedipine Xl [Procardia XL*] 60 mg PO DAILY #30 tab 06/05/19 predniSONE [Prednisone*] 20 mg PO DAILY #3 tab 06/05/19 New Medications: Carbamide Peroxide [Debrox*] 10 drops EACH EAR BID #1 btl Levofloxacin [Levaquin] 500 mg PO DAILY #7 tablet Nifedipine Xl [Procardia XL*] 60 mg PO DAILY #30 tab predniSONE [Prednisone*] 20 mg PO DAILY #3 tab Patient Discharge Instructions: Follow-up with her primary care physician in 5- 7 days, return to the emergency room if recurrent cough, fever or shortness of breath Diet: Low sodium Activity: Ad anurag Time spent managing pt's care (in minutes): 35
== END 2019-06-05 11:13 | disposition home or self-care (01) | DRG 871 ==
LOC: ER 08:55 → ERHOLD 10:52 → 2ND 12:11 → OBSVTOIN 17:40
PROVIDERS: ADMIT Internal Medicine; ATTEND Internal Medicine
PROC: 02HV33Z Insertion of Infusion Device into Superior Vena Cava, Percutaneous Approach (ICD-10-PCS; principal; 2019-06-02)
DX: A41.9 Sepsis, unspecified organism (principal); J13 Pneumonia due to Streptococcus pneumoniae; J96.01 Acute respiratory failure with hypoxia; J44.1 Chronic obstructive pulmonary disease with (acute) exacerbation; Z68.41 Body mass index [BMI] 40.0-44.9, adult; J44.0 Chronic obstructive pulmonary disease with (acute) lower respiratory infection; Z85.3 Personal history of malignant neoplasm of breast; Z87.891 Personal history of nicotine dependence; I10 Essential (primary) hypertension; K21.9 Gastro-esophageal reflux disease without esophagitis; E66.01 Morbid (severe) obesity due to excess calories
CPT/HCPCS: 36415; 71045; 71275; 80048; 80053; 80061; 80076; 83036; 83605; 83735; 83880; 84100; 84484; 85025; 85379; 85610; 87040; 87070; 87205; 87804; 93005; 94640; 96361; 96365; 96375; 99285; G0378; J0360; J2930; J3475; J7030; J7512; Q9967

== ENCOUNTER 2023-04-23 11:43 | Inpatient (IN) | payer MEDICARE, OTHER ==
[2023-04-23 12:47] LABS: Absolute Lymphocytes (CBC) 2.9 K/uL (0.7-4.9); Hematocrit 42.7 % (36.0-45.0); Lymphocytes % 25.6 % (15.3-44.8); MPV 9.4 fL (7.6-11.3); Platelets 391 thou/uL (152-406); RBC Red Blood Cell Count 4.86 M/uL (3.86-4.86)
[2023-04-23 12:51] LABS: Protime INR 1.01
--- NOTE | 2023-04-23 13:06 | RAD REPORT ---
EXAM DESCRIPTION: Agnieszka Single View04/23/2023 12:56 pm CLINICAL HISTORY: Chest pain COMPARISON: 2019 FINDINGS: The lungs appear clear of acute infiltrate. The heart is mildly to moderately enlarged. Prominent right pericardial fat. Pulmonary vascular congestion
[2023-04-23 13:13] LABS: Albumin 3.7 g/dL (3.4-5.0); Bilirubin Direct 0.1 mg/dL (0-0.2); Bilirubin Indirect, Calculated 0.2 mg/dL (0.2-0.8); Bilirubin Total 0.3 mg/dL (0.2-1.0); Potassium 3.8 mEq/L (3.5-5.1); Protein, Total 8.1 g/dL (6.4-8.2)
[2023-04-23 13:36] LABS: Troponin High Sensitivity 951.7 pg/mL (<58.9)
[2023-04-23] MEDS ORDERED: ASPIRIN 81 MG CHEWABLE TABLET ONE (14:12)
--- NOTE | 2023-04-23 14:14 | RAD REPORT ---
EXAM DESCRIPTION: CT - Chest For Pe Angio - 04/23/2023 1:49 pm CLINICAL HISTORY: Chest pain COMPARISON: 2019 TECHNIQUE: Dynamically enhanced axial 3 mm thick images of the chest were obtained during administra tion of 100 mL Isovue 370 IV contrast. Coronal and oblique reconstruction images were generated and r eviewed. Exam utilizes a protocol for optimal evaluation of pulmonary arterial tree. Maximum intensity projections 3D imaging was utilized All CT scans are performed using dose optimization technique as appropriate and may include automated exposure control or mA/KV adjustment according to patient size. FINDINGS: A pulmonary embolus is not seen. A thoracic aortic aneurysm is not noted. A pleural effusion is not seen. A pericardial effusion is not seen. A lung consolidation is not present. Small hiatal hernia IMPRESSION: Negative for a pulmonary embolism.
--- NOTE | 2023-04-23 14:18 | EDPHYS ---
Physician Documentation [facility] Name: Leona Blackman Age: 68 yrs Sex: Female : 1955 Arrival Date: 04/23/2023 Time: 11:43 Bed 20 Private MD: ED Physician Piyush Barahona HPI: 04/23 12:47 This 68 yrs old Female presents to ER via Ambulatory with complaints of Chest Pain. rn 12:47 The patient or guardian reports chest pain that is located primarily in the substernal rn area. 12:49 Onset: 2 month(s) ago. The pain radiates to both shoulders. Associated signs and rn symptoms: Pertinent positives: None. Pertinent negatives: abdominal pain, cough, shortness of breath, syncope, vomiting. The chest pain is described as a heaviness. Duration: The patient or guardian reports multiple episodes, that are intermittent, the episodes last approximately 20 minute(s). Modifying factors: The symptoms are alleviated by nothing. the symptoms are aggravated by nothing. Severity of pain: At its worst the pain was moderate in the emergency department the pain has improved. The patient has experienced similar episodes in the past. Patient reports substernal chest pain intermittent for the last 2 months, lasting approximately 20 minutes each time, radiates to both shoulders and arms. Multiple family members with [place] and before her and that is what had her come in today for evaluation. Denies fever or recent illness. No trauma. No history of DVT or PE. No stomach pain.. Historical: - Allergies: 11:57 Codeine; ko1 - PMHx: 11:57 Cancer; ko1 - Immunization history:: Adult Immunizations up to date. - Social history:: Smoking status: Patient/guardian denies using tobacco, but has a distant history of tobacco abuse. - Family history:: not pertinent. - Hospitalizations: : No recent hospitalization is reported. ROS: 12:49 Constitutional: Negative for fever, chills, and weight loss, Neck: Negative for injury, rn pain, and swelling, Cardiovascular: Positive for chest pain Respiratory: Negative for shortness of breath, cough, wheezing, and pleuritic chest pain, Abdomen/GI: Negative for abdominal pain, nausea, vomiting, diarrhea, and constipation, MS/Extremity: Negative for injury and deformity, Skin: Negative for injury, rash, and discoloration, Neuro: Negative for headache, weakness, numbness, tingling, and seizure, Exam: 12:46 ECG was reviewed by the Attending Physician. rn 12:49 Constitutional: This is a well developed, well nourished patient who is awake, alert, rn and in no acute distress. Cardiovascular: Regular rate and rhythm. No pulse deficits. Respiratory: No increased work of breathing, no retractions or nasal flaring. Abdomen/GI: Soft, non-tender Skin: Warm, dry Neuro: Awake and alert, GCS 15 Vital Signs: 11:52 BP 156 / 78; Pulse 85; Resp 16; Temp 97.3; Pulse Ox 99% on R/A; ko1 12:35 BP 167 / 92; Pulse 78; Resp 18; Pulse Ox 99% on R/A; ld1 14:03 BP 171 / 106; Pulse 85; Resp 18; Pulse Ox 98% ; Pain 0/10; tm6 14:24 Weight 113.13 kg; tm6 14:58 BP 184 / 90; Pulse 73; Resp 19; Pulse Ox 97% on R/A; tm6 14:03 Pain Scale: Adult tm6 MDM: 12:00 Patient medically screened. rn 14:14 Differential diagnosis: acute myocardial infarction, acute pericarditis, coronary rn artery disease pulmonary embolus, stable angina, thoracic aortic disection, unstable angina. 14:15 HEART Score: History: Highly Suspicious (2), ECG: Non specific repolarization rn disturbance / LBTB / PM (1), Age: > or = 65 years (2), Risk Factors: 1 or 2 risk factors (1), Troponin: > or = 3 x Normal Limit (2), Total Score = 8. The patient was given aspirin in the Emergency Department. Data reviewed: vital signs, nurses notes, lab test result(s), EKG, radiologic studies, CT scan, plain films, and as a result, I will admit patient. Consideration of Admission/Observation Patient was admitted/placed on observation. Escalation of care including admission/observation considered. Management of patient was discussed with the following: Hospitalist: Hospitalist, will admit. I considered the following discharge prescriptions or medication management in the emergency department Medications were administered in the Emergency Department. See MAR. Independent interpretation of the following test(s) in the Emergency Department EKG: See my EKG interpretation above X-Ray: My interpretation is Chest x-ray images negative for pneumothorax per my interpretation. Counseling: I had a detailed discussion with the patient and/or guardian regarding the historical points, exam findings, and any diagnostic results supporting the discharge/admit diagnosis, lab results, radiology results, the need for further work-up and treatment in the hospital. Response to treatment: the patient's symptoms have markedly improved after treatment, and as a result, I will admit patient. ED course: No current episodes of chest pain. Elevated troponin. He states longer and more painful episode last night at confucianism, may have had an event last night. Will admit to hospitalist service for cardiology consult and evaluation of unstable angina and NSTEMI. 04/23 12:00 Order name: Basic Metabolic Panel; Complete Time: 13:40 rn 04/23 12:00 Order name: CBC with Diff; Complete Time: 13:14 rn 04/23 12:00 Order name: LFT's; Complete Time: 13:40 rn 04/23 12:00 Order name: NT PRO-BNP; Complete Time: 13:40 rn 04/23 12:00 Order name: PT-INR; Complete Time: 13:14 rn 04/23 12:00 Order name: Troponin HS; Complete Time: 13:40 rn 04/23 12:00 Order name: XRAY Chest (1 view); Complete Time: 13:14 rn 04/23 13:15 Order name: CT Chest For PE Angio; Complete Time: 14:14 rn 04/23 12:00 Order name: EKG; Complete Time: 12:01 rn 04/23 14:51 Order name: CONS Physician Consult EDMT 04/23 12:00 Order name: Cardiac monitoring; Complete Time: 12:31 rn 04/23 12:00 Order name: EKG - Nurse/Tech; Complete Time: 12:31 rn 04/23 12:00 Order name: IV Saline Lock; Complete Time: 12:41 rn 04/23 12:00 Order name: Labs collected and sent; Complete Time: 12:41 rn 04/23 12:00 Order name: O2 Per Protocol; Complete Time: 12:13 rn 04/23 12:00 Order name: O2 Sat Monitoring; Complete Time: 12:13 rn EC:46 Rate is 88 beats/min. Rhythm is irregular. QRS [place] is Normal. [place] interval is normal. rn QRS interval is normal. QT interval is normal. No Q waves. No ST changes noted. Clinical impression: NSR w/ Non-specific ST/T Changes. Interpreted by me. Reviewed by me. Administered Medications: 14:02 Drug: Aspirin PO Chewable Tablet 324 mg PO once; 81 mg tablets x 4 Route: PO; tm6 14:45 Drug: Heparin ([place]-Bolus No thrombolytic) - HEParin IVP 60 units/kg IVP once; Max 5000 tm6 units {Co-Signature: gita (Pari Morales RN).} Route: IVP; Site: right antecubital; 14:45 Drug: Heparin ([place] Drip) 12 units/kg/hr - ([place] [address] units, D5W IV 500 ml) IV at tm6 calculated rate Per protocol; Max initial rate 1000 units/hr {Co-Signature: bon1 (Pari Morales RN).} Route: IV; Rate: calculated rate; Site: right antecubital; Disposition Summary: 04/23/23 14:17 Hospitalization Ordered Notes: Hospitalization Status: Inpatient Admission rn Provider: Yumiko Tapia rn Location: Telemetry/MedSurg (Inpatient) rn Condition: Stable rn Problem: new rn Symptoms: have improved rn Bed/Room Type: Standard rn Room Assignment: 215(04/23/23 16:29) em1 Diagnosis - Subsequent non-ST elevation (NSTEMI) myocardial infarction rn - Chest pain, unspecified rn Forms: - Medication Reconciliation Form rn - SBAR form rn - Leadership Thank You Letter rn Signatures: Dispatcher [employer] EDPiyush Celestin MD MD rn Martinez, Eric em1 Nikki Forbes RN RN ko1 Brooke Peralta RN RN tm6 Pari Morales RN ld1 Corrections: (The following items were deleted from the chart) 16:29 14:17 rn em1
--- NOTE | 2023-04-23 14:18 | ER ---
Nurse's Notes [facility] Name: Leona Blackman Age: 68 yrs Sex: Female : 1955 Arrival Date: 04/23/2023 Time: 11:43 Bed 20 Private MD: Diagnosis: Subsequent non-ST elevation (NSTEMI) myocardial infarction;Chest pain, unspecified Presentation: 04/23 11:52 Chief complaint: Patient states: chest pain 8-10 x in last couple of months radiates to ko1 both arms/shoulders. Coronavirus screen: At this time, the client does not indicate any symptoms associated with coronavirus-19. Ebola Screen: No symptoms or risks identified at this time. Initial Sepsis Screen: Does the patient meet any 2 criteria? No. Patient's initial sepsis screen is negative. Does the patient have a suspected source of infection? No. Patient's initial sepsis screen is negative. Risk Assessment: Do you want to hurt yourself or someone else? Patient reports no desire to harm self or others. Onset of symptoms is unknown. 11:52 Method Of Arrival: Ambulatory ko1 11:52 Acuity: DELVIN 3 ko1 Triage Assessment: 11:57 General: Appears in no apparent distress. uncomfortable, Behavior is calm, cooperative, ko1 appropriate for age. Pain: Complains of pain in chest. Cardiovascular: Reports chest pain. Historical: - Allergies: 11:57 Codeine; ko1 - PMHx: 11:57 Cancer; ko1 - Immunization history:: Adult Immunizations up to date. - Social history:: Smoking status: Patient/guardian denies using tobacco, but has a distant history of tobacco abuse. - Family history:: not pertinent. - Hospitalizations: : No recent hospitalization is reported. Screenin:44 [facility] ED Fall Risk Assessment (Adult) History of falling in the last 3 months, tm6 including since admission No falls in past 3 months (0 pts). Abuse screen: Denies threats or abuse. Denies injuries from another. Nutritional screening: No deficits noted. Tuberculosis screening: No symptoms or risk factors identified. Assessment: 12:41 General: Appears uncomfortable, Behavior is calm, cooperative. Pain:. tm6 12:44 Pain: Complains of pain in chest Pain radiates to right arm and left arm Pain currently tm6 is 0 out of 10 on a pain scale. at worst was 8 out of 10 on a pain scale. Quality of pain is described as aching, sharp, shooting, Pain began 2 months ago. Neuro: Level of Consciousness is awake, alert, obeys commands, Oriented to person, place, time, situation. Cardiovascular: Capillary refill < 3 seconds Patient's skin is warm and dry. Rhythm is sinus rhythm. Respiratory: Airway is patent Respiratory effort is even, unlabored, Respiratory pattern is regular, symmetrical. GI: Abdomen is flat, non-distended. : No signs and/or symptoms were reported regarding the genitourinary system. EENT: No signs and/or symptoms were reported regarding the EENT system. Derm: No signs and/or symptoms reported regarding the dermatologic system. Musculoskeletal: No signs and/or symptoms reported regarding the musculoskeletal system. 14:04 Reassessment: Patient appears in no apparent distress at this time. No changes from tm6 previously documented assessment. Patient and/or family updated on plan of care and expected duration. Pain level reassessed. 14:57 Reassessment: Patient appears in no apparent distress at this time. No changes from tm6 previously documented assessment. Patient and/or family updated on plan of care and expected duration. Pain level reassessed. Patient is alert, oriented x 3, equal unlabored respirations, skin warm/dry/pink. Vital Signs: 11:52 BP 156 / 78; Pulse 85; Resp 16; Temp 97.3; Pulse Ox 99% on R/A; ko1 12:35 BP 167 / 92; Pulse 78; Resp 18; Pulse Ox 99% on R/A; ld1 14:03 BP 171 / 106; Pulse 85; Resp 18; Pulse Ox 98% ; Pain 0/10; tm6 14:24 Weight 113.13 kg; tm6 14:58 BP 184 / 90; Pulse 73; Resp 19; Pulse Ox 97% on R/A; tm6 14:03 Pain Scale: Adult tm6 ED Course: 11:49 Patient arrived in ED. mg5 11:53 Jessenia Blanton PA-C is PHCP. sb4 11:53 Darrin Agustin MD is Attending Physician. sb4 11:54 Attending Physician role handed off by Darrin Agustin MD rn 11:54 Piyush Barahona MD is Attending Physician. rn 11:57 Triage completed. ko1 11:57 Arm band placed on right wrist. Patient placed in an exam room, on a stretcher, on ko1 collections professional, on pulse oximetry, Patient notified of wait time. 12:12 Brooke Peralta, RN is Primary Nurse. tm6 12:44 Patient has correct armband on for positive identification. Placed in gown. Bed in low tm6 position. Call light in reach. Side rails up X2. Provided Education on: need for EKG. Client placed on continuous cardiac and pulse oximetry monitoring. NIBP monitoring applied. licensed prosthetist/orthotist on. Door closed. Warm blanket given. 12:44 Inserted saline lock: 20 gauge in right antecubital area, using aseptic technique. tm6 Patient maintains SpO2 saturation greater than 95% on room air. 12:58 XRAY Chest (1 view) In Process Unspecified. EDMS 13:50 CT Chest For PE Angio In Process Unspecified. EDMS 14:17 Yumiko Tapia MD is Hospitalizing Provider. rn Administered Medications: 14:02 Drug: Aspirin PO Chewable Tablet 324 mg PO once; 81 mg tablets x 4 Route: PO; tm6 14:45 Drug: Heparin (MD-Bolus No thrombolytic) - HEParin IVP 60 units/kg IVP once; Max 5000 tm6 units {Co-Signature: gita (Pari Morales RN).} Route: IVP; Site: right antecubital; 14:45 Drug: Heparin (MD Drip) 12 units/kg/hr - ([place] [address] units, D5W IV 500 ml) IV at tm6 calculated rate Per protocol; Max initial rate 1000 units/hr {Co-Signature: bon1 (Pari Morales RN).} Route: IV; Rate: calculated rate; Site: right antecubital; Medication: 12:44 VIS not applicable for this client. tm6 Outcome: 14:17 Decision to Hospitalize by Provider. rn 17:05 Patient left the ED. tm6 Signatures: Dispatcher [employer] EDMS Piyush Barahona MD MD rn Sims, Lauren, RN RN ld1 Nikki Forbes RN RN ko1 Jessenia Blanton, MERLYN PAVimal 4 Angella Varela mg5 Brooke Peralta RN RN tm6 Morales, Pari RN ld1
--- NOTE | 2023-04-23 14:38 | P.HP ---
Patient History Date of Service: 04/23/23 History of Present Illness: 68-year-old female with a past medical history of breast cancer hypertension, GERD, presents to the emergency room with chest pain. She reports chest pain is substernal radiates to both shoulders. Started 2 months ago. She denies abdominal pain, cough, shortness of breath, dizziness, syncope, nausea vomiting diarrhea. She reports chest pain is intermittent last about approximately 20 minutes and resolves. It is exacerbated by nothing. No reported history of PE. Vital signsP 156 / 78; Pulse 85; Resp 16; Temp 97.3; Pulse Ox 99% EKGRate is 88 beats/min. Rhythm is irregular. QRS [place] is Normal. [place] interval is normal. rn QRS interval is normal. QT interval is normal. No Q waves. No ST changes noted. Clinical impression: NSR w/ Non-specific ST/T Changes, plan to admit for NSTEMI, chest pain unspecified, elevated troponin. Laboratory evaluation troponin 951, BNP elevated 3286. Mild leukocytosis 11.40, chest x-ray pulmonary vascular congestion, mild cardiomegaly, prominent right pericardial fat, CTA no evidence of pulmonary embolus, no reported aortic aneurysm, no pleural effusion, small hiatal hernia Allergies No Known Allergies Allergy (Verified 07/26/15 06:27) Home Medications: Aspirin 81 mg PO DAILY 07/26/15 Omeprazole 20 mg PO DAILY 07/26/15 Carbamide Peroxide [Debrox*] 10 drops EACH EAR BID #1 btl 06/05/19 Levofloxacin [Levaquin] 500 mg PO DAILY #7 tablet 06/05/19 Nifedipine Xl [Procardia XL*] 60 mg PO DAILY #30 tab 06/05/19 predniSONE [Prednisone*] 20 mg PO DAILY #3 tab 06/05/19 - Past Medical/Surgical History Diabetic: No -: breast Cancer -: left-sided partial mastectomy and reconstruction -: hysterectomy -: tonsillectomy -: hemorroidectomy - Family History fatgher -: Heart disease Notes: Hx: heart attack ; triple bypass sx - Social History Alcohol use: Yes Caffeine use: Yes Review of Systems Per HPI Physical Examination - Studies Laboratory Data (last 24 hrs) 04/23/23 04/23/23 04/23/23 12:35 12:35 12:35 WBC 11.40 H Hgb 14.2 Hct 42.7 Plt Count 391 PT 11.1 INR 1.01 Sodium 137 Potassium 3.8 BUN 11 Creatinine 0.73 Glucose 178 H Total Bilirubin 0.3 AST 30 ALT 24 Alkaline Phosphatase 103 Assessment and Plan - Plan Assessment plan NSTEMI Chest pain unspecified Elevated troponin Cardiology consult, trend troponin, lipid panel As needed analgesics, as needed antiemetics, heparin drip, aspirin, antilipid O2 2 L keep sats greater than 92%, nitro paste q 6 hours presents to the emergency room with chest pain. She reports chest pain is substernal radiates to both shoulders. Started 2 months ago. She denies abdominal pain, cough, shortness of breath, dizziness, syncope, nausea vomiting diarrhea. She reports chest pain is intermittent last about approximately 20 minutes and resolves. It is exacerbated by nothing. No reported history of PE. Vital signsP 156 / 78; Pulse 85; Resp 16; Temp 97.3; Pulse Ox 99% EKGRate is 88 beats/min. Rhythm is irregular. QRS [place] is Normal. [place] interval is normal. rn QRS interval is normal. QT interval is normal. No Q waves. No ST changes noted. Clinical impression: NSR w/ Non-specific ST/T Changes, plan to admit for NSTEMI, chest pain unspecified, elevated troponin. Laboratory evaluation troponin 951, BNP elevated 3286. Mild leukocytosis 11.40, chest x-ray pulmonary vascular congestion, mild cardiomegaly, prominent right pericardial fat, CTA no evidence of pulmonary embolus, no reported aortic aneurysm, no pleural effusion, small hiatal hernia History breast cancer hypertension GERD Resume appropriate home meds Diet n.p.o. after midnight Full code DVT prophylaxis Discharge Plan: Home Plan to discharge in: 24 Hours - Advance Directives Does patient have a Living Will: No Does patient have a Durable POA for Healthcare: No - Code Status/Comfort Care Code Status: Full Code Physician Review: Patient Assessed, Agree with Above Assessment and Plan Critical Care: No Time Spent Managing Pts Care (In Minutes): 50
[2023-04-23] MEDS ORDERED: HEPARIN/D5W 25,000 UNIT/500 ML BAG IV ONE (14:43)
[2023-04-23] MEDS ORDERED: HEPARIN 5000 UNIT/ML 1 ML VIAL ONE (14:43)
--- NOTE | 2023-04-23 15:10 | EKG ---
Test Date: 2023-04-23 Test Time: 12:23:48 Rn Concurrent Review: DANAY MEASUREMENT RESULTS: Intervals: Rate: 88 IA: 150 QRSD: 94 QT: 372 QTc: 450 [place]: P: 49 IA: 150 QRS: 29 T: 125 INTERPRETIVE STATEMENTS: Poor data quality, interpretation may be adversely affected Sinus rhythm with occasional premature ventricular complexes Possible Left atrial enlargement Left ventricular hypertrophy ST & T wave abnormality, consider lateral ischemia Abnormal ECG Compared to ECG 06/01/2019 09:18:15 Ventricular premature complex(es) now present Left ventricular hypertrophy now present Possible ischemia now present Prolonged QT interval no longer present ST (T wave) deviation still present Electronically Signed On 04-23-23 15:09:41 DANCER OR CHOREOGRAPHER by Enzo Duran
[2023-04-23] MEDS ORDERED: MORPHINE 4 MG/ML SYR IV PRN (15:59)
[2023-04-23] MEDS ORDERED: ALPRAZOLAM 0.25 MG TABLET PO PRN (15:59)
[2023-04-23] MEDS ORDERED: NITROGLYCERIN 0.4 MG/TAB SL PRN (15:59)
[2023-04-23] MEDS ORDERED: HEPARIN/D5W 25,000 UNIT/500 ML BAG IV PRN (15:59)
[2023-04-23] MEDS ORDERED: FUROSEMIDE 40 MG/4 ML VIAL IV SCH (17:00)
[2023-04-23] MEDS: NITROGLYCERIN 1 GM PKT TD SCH (18:36)
[2023-04-23] MEDS ORDERED: HYDROCODONE/APAP 10/325 TAB PO PRN (19:26)
[2023-04-23 20:01] VITALS: BMI 42.9
[2023-04-24] MEDS: NITROGLYCERIN 1 GM PKT TD SCH ×4 (06:00→17:21)
[2023-04-24 06:19] LABS: Absolute Lymphocytes (CBC) 3.1 K/uL (0.7-4.9); Hematocrit 38.3 % (36.0-45.0); Lymphocytes % 28.2 % (15.3-44.8); MCV 87.3 fL (80-100); MPV 9.2 fL (7.6-11.3); Platelets 343 thou/uL (152-406); RBC Red Blood Cell Count 4.39 M/uL (3.86-4.86)
[2023-04-24] MEDS ORDERED: HEPA 1000U/500MLS 2,000 UNIT/1,000 ML BAG IV ONE (06:44)
[2023-04-24] MEDS ORDERED: VERAPAMIL HCL 10 MG/4 ML VIAL IV ONE (06:45)
[2023-04-24] MEDS ORDERED: NA CHLORIDE 0.9% 500 ML ONE (06:45)
[2023-04-24] MEDS ORDERED: LIDOCAINE 1% 20 ML MDV ONE (06:45)
[2023-04-24] MEDS ORDERED: MIDAZOLAM HCL 2 MG/2 ML INJ ONE (06:45)
[2023-04-24] MEDS ORDERED: FENTANYL CITR 100 MCG/2 ML ONE (06:45)
[2023-04-24] MEDS ORDERED: HEPARIN 5000 UNIT/ML 1 ML VIAL ONE (06:46)
[2023-04-24] MEDS ORDERED: CLOPIDOGREL 75 MG TABLET ONE (06:46)
[2023-04-24] MEDS ORDERED: HEPARIN 10,000 UNIT/10 ML VIAL IV ONE (06:46)
[2023-04-24] MEDS ORDERED: ASPIRIN 325 MG TAB ONE (06:46)
[2023-04-24] MEDS ORDERED: TICAGRELOR 90 MG TABLET PO ONE (06:46)
[2023-04-24] MEDS ORDERED: ATROPINE SULF 1 MG/10 ML SYR IV ONE (06:48)
[2023-04-24] MEDS ORDERED: NITROGLYCERIN/D5W 50 MG/250 ML BTL IV ONE (06:48)
[2023-04-24 06:57] LABS: Potassium 3.6 mEq/L (3.5-5.1)
[2023-04-24] MEDS ORDERED: PNEUMOCOCCAL VACCINE 0.5 ML IMVAC ONE (08:00)
[2023-04-24] MEDS ORDERED: INFLUENZA VACCINE (for 6+ mo) 0.5 ML DOSE IMVAC ONE (08:00)
--- NOTE | 2023-04-24 08:56 | P.PN ---
Subjective Date of Service: 04/24/23 Chief Complaint: chest pain she is status post cardiac cath today, reports reflux, no worsening chest pain. Review of Systems per HPI Physical Examination - Vital Signs Temperature: 97.5 F Blood Pressure: 147/80 Pulse: 75 Respirations: 18 Pulse Ox (%): 95 - Physical Exam General: Alert, In no apparent distress, Oriented x3 HEENT: Atraumatic, Normocephalic Neck: Supple, 2+ carotid pulse no bruit Respiratory: Clear to auscultation bilaterally, Normal air movement Cardiovascular: No edema, Normal pulses Capillary refill: <2 Seconds Gastrointestinal: Normal bowel sounds, Soft and benign Musculoskeletal: No clubbing, No swelling Neurological: Normal gait, Normal speech - Studies Laboratory Data (last 24 hrs) 04/23/23 04/23/23 04/23/23 12:35 12:35 12:35 WBC 11.40 H Hgb 14.2 Hct 42.7 Plt Count 391 PT 11.1 INR 1.01 Sodium 137 Potassium 3.8 BUN 11 Creatinine 0.73 Glucose 178 H Total Bilirubin 0.3 AST 30 ALT 24 Alkaline Phosphatase 103 Assessment And Plan - Plan Assessment plan NSTEMI Chest pain unspecified Elevated troponin Cardiology consult, trend troponin, lipid panel As needed analgesics, as needed antiemetics, heparin drip, aspirin, antilipid O2 2 L keep sats greater than 92%, nitro paste q 6 hours status post cardiac cath 04/24, plan to repeat cath on Thursday presents to the emergency room with chest pain. She reports chest pain is substernal radiates to both shoulders. Started 2 months ago. She denies abdominal pain, cough, shortness of breath, dizziness, syncope, nausea vomiting diarrhea. She reports chest pain is intermittent last about approximately 20 minutes and resolves. It is exacerbated by nothing. No reported history of PE. Vital signsP 156 / 78; Pulse 85; Resp 16; Temp 97.3; Pulse Ox 99% EKGRate is 88 beats/min. Rhythm is irregular. QRS [place] is Normal. [place] interval is normal. rn QRS interval is normal. QT interval is normal. No Q waves. No ST changes noted. Clinical impression: NSR w/ Non-specific ST/T Changes, plan to admit for NSTEMI, chest pain unspecified, elevated troponin. Laboratory evaluation tr oponin 951, BNP elevated 3286. Mild leukocytosis 11.40, chest x-ray pulmonary vascular congestion, mild cardiomegaly, prominent right pericardial fat, CTA no evidence of pulmonary embolus, no reported aortic aneurysm, no pleural effusion, small hiatal hernia History breast cancer hypertension GERD Resume appropriate home meds Diet n.p.o. after midnight Full code DVT prophylaxis Discharge Plan: Home Plan to discharge in: 48 Hours Physician Review: Patient Assessed, Agree with Above Assessment and Plan Critical Care: No Time Spent Managing PTS Care (In Minutes): 35
[2023-04-24] MEDS ORDERED: PANTOPRAZOLE 40MG TABLET PO SCH (09:00)
[2023-04-24] MEDS ORDERED: HOME MED 1 EA UNK (Omeprazole [Omeprazole] 20 MG Tablet.Dr) PO SCH (09:00)
[2023-04-24] MEDS: NIFEDIPINE XL 60 MG TABLET PO SCH (09:00)
[2023-04-24] MEDS ORDERED: ASPIRIN 81 MG CHEWABLE TABLET PO SCH (09:00)
[2023-04-24] MEDS: FUROSEMIDE 20 MG TABLET PO SCH ×2 (09:00→17:21)
[2023-04-24] MEDS ORDERED: ASPIRIN 325 MG TAB PO SCH (09:00)
[2023-04-24] MEDS ORDERED: NITROGLYCERIN 0.4 MG/TAB SL ONE (09:38)
[2023-04-24] MEDS: ACETAMINOPHEN 500 MG TAB PO PRN (11:37)
[2023-04-24] MEDS ORDERED: HYDRALAZINE HCL 20 MG/ML VIAL IV ONE (12:00)
[2023-04-24] MEDS ORDERED: HYDRALAZINE HCL 20 MG/ML VIAL IV PRN (12:37)
[2023-04-24] MEDS ORDERED: NITROGLYCERIN 1 GM PKT TD ONE (13:30)
[2023-04-24] MEDS ORDERED: METOPROLOL TAR 50 MG TAB PO ONE (13:30)
[2023-04-24] MEDS ORDERED: SODIUM CHLORIDE 0.9% 10ML INJ IV PRN (13:42)
[2023-04-24] MEDS: PANTOPRAZOLE 40 MG INJ IVP SCH ×2 (13:58→20:26)
[2023-04-24] MEDS ORDERED: MORPHINE 4 MG/ML SYR IV PRN (16:16)
[2023-04-24] MEDS: METOPROLOL TAR 50 MG TAB PO SCH (17:21)
--- NOTE | 2023-04-24 17:40 | OP ---
Date of Procedure: 04/24/2023 Surgeon: GRICELDA LONG Procedures Performed: 1.Selective coronary angiogram. 2.Left heart catheterization. 3.PCI of severe mid diagonal 1 branch 99% stenosis likely the culprit. We used 2.5 x 12 mm Synergy drug-eluting stent. Indication: [id number] myocardial infarction. Access: Right radial artery 6-[place] closed with TR band. Complications: None. Bleeding: Less than 20 mL. Anesthesia: Total sedation time was 1 hour. Description Of Procedure: After risks, benefits, alternatives were explained, patient agreed to proc edure and signed informed consent. Patient was brought in cardiac catheterization laboratory, preppe d and draped in the usual sterile fashion. Then, I accessed right radial artery using pediatric micr opuncture kit, placed 6-B[place] Slender sheath and took 5-[place] Goodman 4.0 catheter into the aortic ro ot, engaged left main and then in right coronary artery, took standard views and catheter was pushed over the wire into the LV, measured the LVEDP, and pullback did not record any gradient. I then gave systemic heparin to assure ACT level above 250, loaded with 300 mg of Plavix. Patient already recei hawk aspirin. I then took a 6-[place] EBU3.5 guide into the aortic root, engaged left main and took Ru nthrough wire into the left main, then LAD, and then the diagonal 1 branch and used a 2.5 balloon to pre-dilate the lesion and then we placed 2.5 x 12 mm Synergy drug-eluting stent with excellent result s and then removed the wire and the guide and the sheath and placed TR band with good hemostasis. At this point, patient had also significant RCA disease. However, the radial artery was spasming signi ficantly, so we will plan to stage the RCA on Thursday. Findings: 1.Left main; large and normal. 2.LAD; large vessel with proximal 40% and the diagonal 1 branch is a large branch and in mid segment has 99% stenosis which is the culprit, status post successful PCI and then the LAD in the mid segmen t is focal 50%, distally it is 40% stenosed. 3.Left circumflex; proximal 60% stenosis. The rest of the circumflex and OM appears normal. 4.RCA; large and dominant, proximal 70%, mid 80% to 90%, and the PDA has 50% two tandem lesions. 5.LVEDP is elevated at 15 mmHg. Conclusion: 1.Severe diagonal 1 branch stenosis which is likely the culprit, status post successful PCI. 2.Severe RCA with ulcerative plaque. Plan: To keep the patient on heparin over the weekend and PCI on the RCA on Thursday morning. RCA was not fixed today due to significant spasm of the radial access and the patient was fully heparinized so as to avoid groin access complications and the patient was chest pain free. We will plan to do th is on Thursday. To start the patient on heparin drip 2 hours post TR band removal, and to keep her on heparin drip throughout the weekend and start aspirin, Plavix, and high-dose statin. Plan: 1.Aspirin, statin, and Plavix. 2.PCI of the RCA on Thursday. /ISMAELL Voice ID: [id number] Report ID: [id number]
[2023-04-24] MEDS: ONDANSETRON 4 MG/2 ML VIAL IV PRN (20:26)
[2023-04-24] MEDS: HEPARIN/D5W 25,000 UNIT/500 ML BAG IV SCH (23:36)
[2023-04-25] MEDS: NITROGLYCERIN 1 GM PKT TD SCH ×4 (00:31→17:52)
[2023-04-25 03:57] LABS: Absolute Lymphocytes (CBC) 3.2 K/uL (0.7-4.9); Hematocrit 39.9 % (36.0-45.0); Lymphocytes % 21.2 % (15.3-44.8); MCV 86.6 fL (80-100); MPV 9.2 fL (7.6-11.3); Platelets 404 thou/uL (152-406)
[2023-04-25 04:14] LABS: Potassium 3.5 mEq/L (3.5-5.1)
[2023-04-25] MEDS: METOPROLOL TAR 50 MG TAB PO SCH ×2 (05:42→17:52)
--- NOTE | 2023-04-25 07:53 | P.PN ---
Subjective Date of Service: 04/25/23 Chief Complaint: chest pain she is status post cardiac cath, reports feeling fatigued, on hep drip, no worsening chest pain. Review of Systems per hpi Physical Examination - Vital Signs Temperature: 97.8 F Blood Pressure: 142/72 Pulse: 84 Respirations: 16 Pulse Ox (%): 93 - Physical Exam General: Alert, In no apparent distress, Oriented x3 HEENT: Atraumatic, Normocephalic Neck: Supple, 2+ carotid pulse no bruit Respiratory: Clear to auscultation bilaterally, Normal air movement Cardiovascular: No edema, Normal pulses Capillary refill: <2 Seconds Gastrointestinal: Normal bowel sounds, Soft and benign Musculoskeletal: No clubbing, No swelling Integumentary: No rashes, No breakdown Neurological: Normal speech, Normal strength at 5/5 x4 extr Assessment And Plan - Plan Assessment plan NSTEMI Chest pain unspecified Elevated troponin Cardiology consult, trend troponin, lipid panel, heparin drip As needed analgesics, as needed antiemetics, heparin drip, aspirin, antilipid O2 2 L keep sats greater than 92%, nitro paste q 6 hours status post cardiac cath 04/24, plan to repeat cath on Thursday Cardiac cath rocedures Performed: 1. Selective coronary angiogram. 2. Left heart catheterization. 3. PCI of severe mid diagonal 1 branch 99% stenosis likely the culprit. We used 2.5 x 12 mm Synergy drug-eluting stent Conclusion: 1. Severe diagonal 1 branch stenosis which is likely the culprit, status post successful PCI. 2. Severe RCA with ulcerative plaque. Plan: To keep the patient on heparin over the weekend and PCI on the RCA on Thursday morning presents to the emergency room with chest pain. She reports chest pain is substernal radiates to both shoulders. Started 2 months ago. She denies abdominal pain, cough, shortness of breath, dizziness, syncope, nausea vomiting diarrhea. She reports chest pain is intermittent last about approximately 20 minutes and resolves. It is exacerbated by nothing. No reported history of PE. Vital signsP 156 / 78; Pulse 85; Resp 16; Temp 97.3; Pulse Ox 99% EKGRate is 88 beats/min. Rhythm is irregular. QRS [place] is Normal. [place] interval is normal. rn QRS interval is normal. QT interval is normal. No Q waves. No ST changes noted. Clinical impression: NSR w/ Non-specific ST/T Changes, plan to admit for NSTEMI, chest pain unspecified, elevated troponin. Laboratory evaluation troponin 951, BNP elevated 3286. Mild leukocytosis 11.40, chest x-ray pulmonary vascular congestion, mild cardiomegaly, prominent right pericardial fat, CTA no evidence of pulmonary embolus, no reported aortic aneurysm, no pleural effusion, small hiatal hernia History breast cancer hypertension GERD Resume appropriate home meds Diet n.p.o. after midnight Full code DVT prophylaxis Plan to discharge in: 48 Hours Physician Review: Patient Assessed, Agree with Above Assessment and Plan Critical Care: No Time Spent Managing PTS Care (In Minutes): 35
[2023-04-25] MEDS: ACETAMINOPHEN 500 MG TAB PO PRN (08:45)
[2023-04-25] MEDS: ONDANSETRON 4 MG/2 ML VIAL IV PRN (08:46)
[2023-04-25] MEDS: CLOPIDOGREL 75 MG TABLET PO SCH (08:49)
[2023-04-25] MEDS: FUROSEMIDE 20 MG TABLET PO SCH ×2 (08:49→16:58)
[2023-04-25] MEDS: NIFEDIPINE XL 60 MG TABLET PO SCH (08:49)
[2023-04-25] MEDS: ASPIRIN 81 MG CHEWABLE TABLET PO SCH (08:50)
[2023-04-25] MEDS: PANTOPRAZOLE 40 MG INJ IVP SCH ×2 (08:50→20:37)
[2023-04-25] MEDS ORDERED: ACETAMIN/CAFFEINE/BUTALB TAB PO ONE (10:22)
[2023-04-25] MEDS: HYDROCODONE/APAP 7.5/325 MG TAB PO PRN (16:57)
[2023-04-25] MEDS: HEPARIN/D5W 25,000 UNIT/500 ML BAG IV SCH (20:37)
[2023-04-26] MEDS: NITROGLYCERIN 1 GM PKT TD SCH ×4 (00:07→18:13)
[2023-04-26] MEDS: HYDROCODONE/APAP 7.5/325 MG TAB PO PRN ×4 (00:34→18:13)
[2023-04-26] MEDS: METOPROLOL TAR 50 MG TAB PO SCH ×2 (05:55→18:12)
--- NOTE | 2023-04-26 07:40 | P.PN ---
Subjective Date of Service: 04/26/23 Chief Complaint: chest pain Subjective: No new changes she is status post cardiac cath Thu, on hep drip, no worsening chest pain. Plan for cath for Thursday, n.p.o. after night Thursday - Physical Exam General: Alert, In no apparent distress, Oriented x3 HEENT: Atraumatic, Normocephalic Neck: Supple, 2+ carotid pulse no bruit Respiratory: Clear to auscultation bilaterally, Normal air movement Cardiovascular: No edema, Normal pulses Capillary refill: <2 Seconds Gastrointestinal: Normal bowel sounds, Soft and benign Musculoskeletal: No clubbing, No swelling Integumentary: No rashes, No breakdown Neurological: Normal speech, Normal strength at 5/5 x4 ext Review of Systems per hpi Physical Examination - Vital Signs Temperature: 97.8 F Blood Pressure: 128/62 Pulse: 68 Respirations: 16 Pulse Ox (%): 138 - Studies Laboratory Data (last 24 hrs) 04/25/23 04/25/23 04/25/23 18:57 14:05 09:30 APTT 42.5 H 42.5 H 41.6 H Assessment And Plan - Plan Assessment plan NSTEMI Chest pain unspecified Elevated troponin Cardiology consult, trend troponin, lipid panel, heparin drip As needed analgesics, as needed antiemetics, heparin drip, aspirin, antilipid O2 2 L keep sats greater than 92%, nitro paste q 6 hours status post cardiac cath 04/24, plan to repeat cath on Thursday n.p.o., Thursday midnight Cardiac cath rocedures Performed: 1. Selective coronary angiogram. 2. Left heart catheterization. 3. PCI of severe mid diagonal 1 branch 99% stenosis likely the culprit. We used 2.5 x 12 mm Synergy drug-eluting stent Conclusion: 1. Severe diagonal 1 branch stenosis which is likely the culprit, status post successful PCI. 2. Severe RCA with ulcerative plaque. Plan: To keep the patient on heparin over the weekend and PCI on the RCA on Thursday morning presents to the emergency room with chest pain. She reports chest pain is substernal radiates to both shoulders. Started 2 months ago. She denies abdominal pain, cough, shortness of breath, dizziness, syncope, nausea vomiting diarrhea. She reports chest pain is intermittent last about approximately 20 minutes and resolves. It is exacerbated by nothing. No reported history of PE. Vital signsP 156 / 78; Pulse 85; Resp 16; Temp 97.3; Pulse Ox 99% EKGRate is 88 beats/min. Rhythm is irregular. QRS [place] is Normal. [place] interval is normal. rn QRS interval is normal. QT interval is normal. No Q waves. No ST changes noted. Clinical impression: NSR w/ Non-specific ST/T Changes, plan to admit for NSTEMI, chest pain unspecified, elevated troponin. Laboratory evaluation troponin 951, BNP elevated 3286. Mild leukocytosis 11.40, chest x-ray pulmonary vascular congestion, mild cardiomegaly, prominent right pericardial fat, CTA no evidence of pulmonary embolus, no reported aortic aneurysm, no pleural effusion, small hiatal hernia History breast cancer hypertension GERD Resume appropriate home meds Diet cardiac Full code DVT prophylaxis heparin drip Discharge Plan: Home Plan to discharge in: 48 Hours - Code Status/Comfort Care Code Status: Full Code Physician Review: Patient Assessed, Agree with Above Assessment and Plan Critical Care: No Time Spent Managing PTS Care (In Minutes): 35
[2023-04-26 08:24] LABS: Absolute Lymphocytes (CBC) 2.3 K/uL (0.7-4.9); Hematocrit 37.3 % (36.0-45.0); Lymphocytes % 16.3 % (15.3-44.8); MCV 87.2 fL (80-100); MPV 8.6 fL (7.6-11.3); Platelets 339 thou/uL (152-406); RBC Red Blood Cell Count 4.28 M/uL (3.86-4.86)
[2023-04-26 08:45] LABS: Magnesium 1.8 mg/dL (1.6-2.4); Potassium 3.4 mEq/L (3.5-5.1)
[2023-04-26] MEDS: CLOPIDOGREL 75 MG TABLET PO SCH (08:58)
[2023-04-26] MEDS: NIFEDIPINE XL 60 MG TABLET PO SCH (08:58)
[2023-04-26] MEDS: ASPIRIN 81 MG CHEWABLE TABLET PO SCH (08:59)
[2023-04-26] MEDS: PANTOPRAZOLE 40 MG INJ IVP SCH ×2 (09:00→20:51)
[2023-04-26] MEDS: FUROSEMIDE 20 MG TABLET PO SCH ×2 (09:00→18:12)
[2023-04-26] MEDS: HEPARIN/D5W 25,000 UNIT/500 ML BAG IV SCH (16:36)
[2023-04-27] MEDS: HYDROCODONE/APAP 7.5/325 MG TAB PO PRN ×4 (00:20→23:25)
[2023-04-27] MEDS: NITROGLYCERIN 1 GM PKT TD SCH ×5 (00:21→23:25)
[2023-04-27 01:18] LABS: Absolute Lymphocytes (CBC) 4.6 K/uL (0.7-4.9); Hematocrit 33.9 % (36.0-45.0); Lymphocytes % 29.8 % (15.3-44.8); MCV 87.3 fL (80-100); MPV 9.3 fL (7.6-11.3); Platelets 325 thou/uL (152-406); RBC Red Blood Cell Count 3.88 M/uL (3.86-4.86)
[2023-04-27 01:36] LABS: Magnesium 1.8 mg/dL (1.6-2.4); Potassium 3.4 mEq/L (3.5-5.1)
[2023-04-27] MEDS: HEPARIN/D5W 25,000 UNIT/500 ML BAG IV SCH (05:59)
[2023-04-27] MEDS: METOPROLOL TAR 50 MG TAB PO SCH ×2 (06:29→17:15)
[2023-04-27] MEDS: FUROSEMIDE 20 MG TABLET PO SCH ×2 (09:30→16:32)
[2023-04-27] MEDS: ASPIRIN 81 MG CHEWABLE TABLET PO SCH (09:31)
[2023-04-27] MEDS: CLOPIDOGREL 75 MG TABLET PO SCH (09:32)
[2023-04-27] MEDS: NIFEDIPINE XL 60 MG TABLET PO SCH (09:32)
[2023-04-27] MEDS: PANTOPRAZOLE 40 MG INJ IVP SCH ×2 (10:27→20:42)
--- NOTE | 2023-04-27 11:19 | P.PN ---
Subjective Date of Service: 04/27/23 Chief Complaint: chest pain Subjective: No new changes, No C/O voiced, Improving, Doing well Patient is alert and oriented Denies chest pain or discomfort Vitals stable Patient is for cardiac catheterization today <Marci Tee - Last Filed: 04/27/23 12:48> Date of Service: 04/27/23 <Maria Dolores eTrrell Emily - Last Filed: 04/27/23 18:07> Review of Systems 10-point ROS is otherwise unremarkable <Marci Tee - Last Filed: 04/27/23 12:48> Physical Examination - Vital Signs Temperature: 97.3 F Blood Pressure: 123/60 Pulse: 55 Respirations: 16 Pulse Ox (%): 94 - Physical Exam General: Alert, Oriented x3 HEENT: Atraumatic, PERRLA Neck: Supple, 2+ carotid pulse no bruit Respiratory: Clear to auscultation bilaterally, Normal air movement Cardiovascular: No edema, Normal pulses, Normal S1 S2 Capillary refill: <2 Seconds Gastrointestinal: Normal bowel sounds, Soft and benign Musculoskeletal: No clubbing, No swelling Integumentary: No rashes, No breakdown <Marci Tee - Last Filed: 04/27/23 12:48> Assessment And Plan - Current Problems (Diagnosis) (1) NSTEMI (non-ST elevated myocardial infarction) Current Visit: Yes Status: Acute (2) Chest pain Current Visit: Yes Status: Acute Qualifiers: Ischemic chest pain type: unspecified angina pectoris type (3) Hypertension Current Visit: Yes Status: Chronic Qualifiers: Hypertension type: primary hypertension Qualified Code(s): I10 - Essential (primary) hypertension (4) GERD (gastroesophageal reflux disease) Current Visit: Yes Status: Chronic Qualifiers: Esophagitis presence: without esophagitis Qualified Code(s): K21.9 - Gastro-esophageal reflux disease without esophagitis (5) History of breast cancer Current Visit: Yes Status: Chronic - Plan Assessment plan NSTEMI Chest pain unspecified Elevated troponin Cardiology consult, trend troponin, lipid panel, heparin drip As needed analgesics, as needed antiemetics, heparin drip, aspirin, antilipid O2 2 L keep sats greater than 92%, nitro paste q 6 hours status post cardiac cath 04/24, plan to repeat cath today n.p.o., Thursday midnight Cardiac cath rocedures Performed: 1. Selective coronary angiogram. 2. Left heart catheterization. 3. PCI of severe mid diagonal 1 branch 99% stenosis likely the culprit. We used 2.5 x 12 mm Synergy drug-eluting stent Plan 1. Severe diagonal 1 branch stenosis which is likely the culprit, status post successful PCI. 2. Severe RCA with ulcerative plaque. Plan: To keep the patient on heparin over the weekend and PCI on the RCA [place] History breast cancer hypertension: Chronic, controlled on metoprolol 50 mg p.o. twice daily, nifedipine 60 mg p.o. daily Low-sodium diet GERD Chronic, on Protonix 40 IV every 12 hours Continue the current management Resume appropriate home meds Discharge Plan: Home Plan to discharge in: 24 Hours - Code Status/Comfort Care Code Status Assessed: Yes (full code) Code Status: Full Code Physician Review: Patient Assessed, Agree with Above Assessment and Plan Critical Care: No Time Spent Managing PTS Care (In Minutes): 35 (minutes) <Marci Tee - Last Filed: 04/27/23 12:48> Physician Review Additional Text: 04/27/23 18:07 Pt seen and examined. I agree with the note by the CAR WASH SUPERVISOR. Cardiology will place stent to the LAD today. Will dc once cleared by Cardiology <Maria Dolores Terrell - Last Filed: 04/27/23 18:07>
[2023-04-27] MEDS ORDERED: NA CHLORIDE 0.9% 500 ML ONE (17:23)
[2023-04-27] MEDS ORDERED: LIDOCAINE 1% 20 ML MDV ONE (18:06)
[2023-04-27] MEDS ORDERED: HEPA 1000U/500MLS 2,000 UNIT/1,000 ML BAG IV ONE (18:06)
[2023-04-27] MEDS ORDERED: FENTANYL CITR 100 MCG/2 ML ONE (18:08)
[2023-04-27] MEDS ORDERED: ASPIRIN 325 MG TAB ONE (18:09)
[2023-04-27] MEDS ORDERED: HEPARIN 10,000 UNIT/10 ML VIAL IV ONE ×2 (18:09→18:48)
[2023-04-27] MEDS ORDERED: MIDAZOLAM HCL 2 MG/2 ML INJ ONE (18:09)
[2023-04-27] MEDS ORDERED: TICAGRELOR 90 MG TABLET PO ONE (18:09)
[2023-04-27] MEDS ORDERED: CLOPIDOGREL 75 MG TABLET ONE (18:09)
[2023-04-27] MEDS ORDERED: ADENOSINE 6 MG/ 2ML VIAL IV ONE (19:03)
--- NOTE | 2023-04-27 19:50 | OP ---
Date of Procedure: 04/27/2023 Surgeon: GRICELDA LONG Procedures Performed: 1.Selective coronary angiogram of the right coronary artery. 2.PCI of the mid RCA, severe stenosis, I used 3.5 x 20 mm Synergy drug-eluting stent. Indication: Non-ST elevation myocardial infraction. Access: Right femoral artery 6-Chilean closed with 6-Chilean Angio-Seal. Complications: None. Bleeding: Less than 20 mL. Anesthesia: Total sedation time was 35 minutes. Description Of Procedure: After risks, benefits, and alternatives were explained, the patient agreed to proceed and signed informed consent. The patient was brought into cardiac catheterization [facility], prepped and draped in usual sterile fashion. Then, I accessed right femoral artery using micro puncture kit, ultrasound guidance, fluoroscopy with 6-Chilean Clifton sheath, took a 6-Chilean JR4 karely de into the aortic root, engaged the RCA, took standard views, and gave systemic heparin to assure AC T level above 250. The patient is already on Plavix and aspirin and took a run-through wire into the RCA, placed distally and then using a 3.5 balloon, the lesion was pre-dilated and expanded very well and then I placed 3.5 x 20 mm Synergy drug-eluting stent with excellent expansion. There was a spas m next to the stent, responded very well to nitroglycerin and to adenosine, so will be left alone as there was no disease in the area prior to the stent placement. Conclusion: Severe mid RCA stenosis, status post successful PCI as above. Plan: Aspirin, Plavix, high-dose statin, and the patient can be released to go home tomorrow. SR/MODL Voice ID: [id number] Report ID: [id number]
[2023-04-27] MEDS ORDERED: ACETAMINOPHEN 325 MG TABLET PO PRN (22:41)
[2023-04-27] MEDS ORDERED: NA CHLORIDE 0.9% 1,000 ML IV SCH (23:00)
[2023-04-28 04:02] LABS: Absolute Lymphocytes (CBC) 2.8 K/uL (0.7-4.9); Hematocrit 34.3 % (36.0-45.0); Lymphocytes % 24.3 % (15.3-44.8); MCV 86.8 fL (80-100); MPV 9.3 fL (7.6-11.3); Platelets 346 thou/uL (152-406); RBC Red Blood Cell Count 3.95 M/uL (3.86-4.86)
[2023-04-28 04:26] LABS: Magnesium 2.2 mg/dL (1.6-2.4); Potassium 3.5 mEq/L (3.5-5.1)
[2023-04-28] MEDS: METOPROLOL TAR 50 MG TAB PO SCH (05:50)
[2023-04-28] MEDS: NITROGLYCERIN 1 GM PKT TD SCH (05:51)
[2023-04-28 05:57] VITALS: TEMP 97
[2023-04-28] MEDS ORDERED: POTASSIUM CL SA 10 MEQ TAB PO ONE (07:54)
--- NOTE | 2023-04-28 08:21 | P.DS ---
Admission Date: 04/25/23 Discharge Date: 04/28/23 Reason for Admission: chest pain - Problems (1) NSTEMI (non-ST elevated myocardial infarction) Status: Acute (2) Chest pain Status: Acute Qualifiers: Ischemic chest pain type: unspecified angina pectoris type (3) Hypertension Status: Chronic Qualifiers: Hypertension type: primary hypertension Qualified Code(s): I10 - Essential (primary) hypertension (4) GERD (gastroesophageal reflux disease) Status: Chronic Qualifiers: Esophagitis presence: without esophagitis Qualified Code(s): K21.9 - Gastro-esophageal reflux disease without esophagitis (5) History of breast cancer Status: Chronic Brief History of Present Illness: Patient History Date of admission 04/23/23 History of Present Illness: 68-year-old female with a past medical history of breast cancer hypertension, GERD, presents to the emergency room with chest pain. She reports chest pain is substernal radiates to both shoulders. Started 2 months ago. She denies abdominal pain, cough, shortness of breath, dizziness, syncope, nausea vomiting diarrhea. She reports chest pain is intermittent last about approximately 20 minutes and resolves. It is exacerbated by nothing. No reported history of PE. Vital signsP 156 / 78; Pulse 85; Resp 16; Temp 97.3; Pulse Ox 99% EKGRate is 88 beats/min. Rhythm is irregular. QRS [place] is Normal. NH interval is normal. rn QRS interval is normal. QT interval is normal. No Q waves. No ST changes noted. Clinical impression: NSR w/ Non-specific ST/T Changes, plan to admit for NSTEMI, chest pain unspecified, elevated troponin. Laboratory evaluation troponin 951, BNP elevated 3286. Mild leukocytosis 11.40, chest x-ray pulmonary vascular congestion, mild cardiomegaly, prominent right pericardial fat, CTA no evidence of pulmonary embolus, no reported aortic aneurysm, no pleural effusion, small hiatal hernia Hospital Course: Ms. Blackman is a pleasant female patient with a past medical history significant for breast cancer hypertension, GERD, HTN, CAD, HLD, who was admitted to the [facility] on 04/23/23 for with chest pain Consulted cardiology,Cardiac cath Procedures Performed on 04/24/2023, and PCI on the RCA on 04/27/2023. On 04/28/2023, patient was seen on morning rounds and deemed medically stable for discharge. She was discharged with instructions to schedule follow-up appointments with PCP. Patient was provided prescriptions for Plavix 75 mg p.o. daily. Patient will continue aspirin 81 mg daily. Patient refused to take statins's her mother had severe reaction to statins. Recommended low-fat low- cholesterol diet and lifestyle changes. The patient was given the opportunity to ask questions and reported no further questions. Follow-up PCP 1 week Senior Logistics Manager in 4 weeks <Marci Tee - Last Filed: 04/28/23 08:24> Admission Date: 04/25/23 Discharge Date: 04/28/23 Hospital Course: Pt seen and examined. I agree withe note by the HUMAN SERVICES MANAGER. <Maria Dolores Terrell - Last Filed: 04/28/23 18:28> Disposition: ROUTINE DISCHARGE Discharge Condition: GOOD Vital Signs/Physical Exam: Temp Pulse Resp BP Pulse Ox 97.0 F 71 20 119/50 L 96 04/28/23 04:00 04/28/23 05:51 04/28/23 04:00 04/28/23 05:51 04/28/23 04:00 General: Alert, Oriented x3 HEENT: Atraumatic, PERRLA Neck: Supple, 2+ carotid pulse no bruit Respiratory: Clear to auscultation bilaterally, Normal air movement Capillary refill: <2 Seconds Gastrointestinal: Normal bowel sounds, Soft and benign Musculoskeletal: No clubbing, No swelling Integumentary: No rashes, No significant lesion Neurological: Normal speech, Normal affect Laboratory Data at Discharge: WBC 11.60 thou/uL (4.3-10.9) H 04/28/23 03:36 Hgb 11.4 g/dL (12.0-15.0) L 04/28/23 03:36 Hct 34.3 % (36.0-45.0) L 04/28/23 03:36 Plt Count 346 thou/uL (152-406) 04/28/23 03:36 PT 11.1 SECONDS (9.5-12.5) 04/23/23 12:35 INR 1.01 04/23/23 12:35 APTT 29.0 SECONDS (24.3-36.9) 04/28/23 03:36 Sodium 138 mEq/L (136-145) 04/28/23 03:36 Potassium 3.5 mEq/L (3.5-5.1) 04/28/23 03:36 BUN 21 mg/dL (7-18) H 04/28/23 03:36 Creatinine 0.82 mg/dL (0.55-1.02) 04/28/23 03:36 Glucose 156 mg/dL (74-106) H 04/28/23 03:36 Magnesium 2.2 mg/dL (1.6-2.4) 04/28/23 03:36 Total Bilirubin 0.3 mg/dL (0.2-1.0) 04/23/23 12:35 AST 30 U/L (15-37) 04/23/23 12:35 ALT 24 U/L (13-56) 04/23/23 12:35 Alkaline Phosphatase 103 U/L (45-117) 04/23/23 12:35 Triglycerides 205 mg/dL (<150) H 04/24/23 15:56 Cholesterol 228 mg/dL (<200) H 04/24/23 15:56 HDL Cholesterol 53 mg/dL (40-60) 04/24/23 15:56 Cholesterol/HDL Ratio 4.30 04/24/23 15:56 <Marci Tee - Last Filed: 04/28/23 08:24> Vital Signs/Physical Exam: Temp Pulse Resp BP Pulse Ox 97.0 F 65 18 132/66 93 04/28/23 14:16 04/28/23 14:16 04/28/23 14:16 04/28/23 14:16 04/28/23 14:16 Laboratory Data at Discharge: WBC 11.60 thou/uL (4.3-10.9) H 04/28/23 03:36 Hgb 11.4 g/dL (12.0-15.0) L 04/28/23 03:36 Hct 34.3 % (36.0-45.0) L 04/28/23 03:36 Plt Count 346 thou/uL (152-406) 04/28/23 03:36 PT 11.1 SECONDS (9.5-12.5) 04/23/23 12:35 INR 1.01 04/23/23 12:35 APTT 29.0 SECONDS (24.3-36.9) 04/28/23 03:36 Sodium 138 mEq/L (136-145) 04/28/23 03:36 Potassium 3.5 mEq/L (3.5-5.1) 04/28/23 03:36 BUN 21 mg/dL (7-18) H 04/28/23 03:36 Creatinine 0.82 mg/dL (0.55-1.02) 04/28/23 03:36 Glucose 156 mg/dL (74-106) H 04/28/23 03:36 Magnesium 2.2 mg/dL (1.6-2.4) 04/28/23 03:36 Total Bilirubin 0.3 mg/dL (0.2-1.0) 04/23/23 12:35 AST 30 U/L (15-37) 04/23/23 12:35 ALT 24 U/L (13-56) 04/23/23 12:35 Alkaline Phosphatase 103 U/L (45-117) 04/23/23 12:35 Triglycerides 205 mg/dL (<150) H 04/24/23 15:56 Cholesterol 228 mg/dL (<200) H 04/24/23 15:56 HDL Cholesterol 53 mg/dL (40-60) 04/24/23 15:56 Cholesterol/HDL Ratio 4.30 04/24/23 15:56 <Maria Dolores Terrell - Last Filed: 04/28/23 18:28> Time spent managing pt's care (in minutes): 55 (minutes) <Marci Tee - Last Filed: 04/28/23 08:24> <Maria Dolores Terrell - Last Filed: 04/28/23 18:28> Home Medications: Aspirin 81 mg PO DAILY 07/26/15 Omeprazole 20 mg PO DAILY 07/26/15 Valsartan [Diovan*] 160 mg PO DAILY 04/23/23 Clopidogrel Bisulfate [Plavix*] 75 mg PO DAILY 30 Days #30 tab 04/28/23 New Medications: Clopidogrel Bisulfate [Plavix*] 75 mg PO DAILY 30 Days #30 tab Physician Discharge Instructions: Ms. Blackman is a pleasant female patient with a past medical history significant for breast cancer hypertension, GERD, HTN, CAD, HLD, who was admitted to the [facility] on 04/23/23 for with chest pain Consulted cardiology,Cardiac cath Procedures Performed on 04/24/2023, and PCI on the RCA on 04/27/2023. On 04/28/2023, patient was seen on morning rounds and deemed medically stable for discharge. She was discharged with instructions to schedule follow-up appointments with PCP. Patient was provided prescriptions for Plavix 75 mg p.o. daily. Patient will continue aspirin 81 mg daily. Patient refused to take statins's her mother had severe reaction to statins. Recommended low-fat low- cholesterol diet and lifestyle changes. The patient was given the opportunity to ask questions and reported no further questions. Follow-up PCP 1 week Senior Logistics Manager in 4 weeks Followup: Dieudonne Mckenzie DO [Primary Care Provider] - Enzo Duran MD [ACTIVE - CAN ADMIT] -
[2023-04-28] MEDS: PANTOPRAZOLE 40 MG INJ IVP SCH (09:00)
[2023-04-28 09:32] VITALS: O2SAT 95
[2023-04-28] MEDS: CLOPIDOGREL 75 MG TABLET PO SCH (09:41)
[2023-04-28] MEDS: ASPIRIN 81 MG CHEWABLE TABLET PO SCH (09:41)
[2023-04-28] MEDS: NIFEDIPINE XL 60 MG TABLET PO SCH (09:41)
[2023-04-28 09:46] VITALS: BP 132/66
[2023-04-28] MEDS: FUROSEMIDE 20 MG TABLET PO SCH (09:47)
--- NOTE | 2023-04-28 12:20 | ECHO ---
HEIGHT: 5 ft 4 in WEIGHT: 250 lb 0 oz DATE OF STUDY: 04/27/[address]: Sylvia Sanchez CONTRACTS ADMINISTRATORVimal 2-DIMENSIONAL: YES M.MODE: YES DOPPLER: YES COLOR FLOW: YES TDS: PORTABLE: YES DEFINITY: BUBBLE STUDY: DIAGNOSIS: NON ST ELEVATION MYOCARDIAL INFARCTION CARDIAC HISTORY: CATHERIZATION: SURGERY: PROSTHETIC VALVE: PACEMAKER: MEASUREMENTS (cm) DIASTOLIC (NORMALS) SYSTOLIC (NORMALS) IVSd 1.0 (0.6-1.2) LA Diam 4.1 (1.9-4.0) LVEF 54% LVIDd 4.7 (3.5-5.7) LVIDs 3.4 (2.0-3.5) %FS 28% LVPWd 1.0 (0.6-1.2) Ao Diam 2.4 (2.0-3.7) 2 DIMENSIONAL ASSESSMENT: RIGHT ATRIUM: NORMAL LEFT ATRIUM: ENLARGED RIGHT VENTRICLE: NORMAL LEFT VENTRICLE: NORMAL TRICUSPID VALVE: MILD TRICUSPID REGURGITATION MITRAL VALVE: MILD MITRAL REGURGITATION PULMONIC VALVE: NORMAL AORTIC VALVE: THICKENED, NO AORTIC STENOSIS PERICARDIAL EFFUSION: NONE AORTIC ROOT: NORMAL LEFT VENTRICULAR WALL MOTION: NORMAL DOPPLER/COLOR FLOW: SEE BELOW COMMENTS: 1. NORMAL LEFT VENTRICULAR EJECTION FRACTION 55-60% WITH NORMAL WALL MOTION 2. GRADE I DIASTOLIC DYSFUNCTION 3. LEFT ATRIAL ENLARGEMENT 4. MILD MITRAL REGURGITATION, TRICUSPID REGURGITATION TECHNOLOGIST: KOBE KAPOOR
--- NOTE | 2023-04-28 13:43 | P.CNS ---
Date of Consult: 04/24/23 Reason for Consult: chest pain, increased troponin, NSTEMI Requesting Physician: Yumiko Tapia Chief Complaint: chest pain History of Present Illness: Pt began having intermittent chest pain in the back and down her arms intemitt ently for about a month. On April 22 at [facility] Ms. Blackman began experiencing more chest pain and as many family member had similar symptoms with heart attacks or deaths, she decided to go to the ED. In the ED she was treated for pain, CT chest negative, troponin and BNP positive for elevation. She was admitted on asa and a heparin drip to the Hospitalist service. Cardiology was consulted for elevated troponin, NSTEMI Allergies No Known Allergies Allergy (Verified 04/23/23 19:53) Home medications list reviewed: Yes Home Medications: Aspirin 81 mg PO DAILY 07/26/15 Omeprazole 20 mg PO DAILY 07/26/15 Valsartan [Diovan*] 160 mg PO DAILY 04/23/23 Clopidogrel Bisulfate [Plavix*] 75 mg PO DAILY 30 Days #30 tab 04/28/23 - Past Medical/Surgical History Diabetic: No -: breast Cancer -: dental procudure currently on abx -: left-sided partial mastectomy and reconstruction -: hysterectomy -: tonsillectomy -: hemorroidectomy - Family History fatgher Medical History: Heart disease Notes: Hx: heart attack ; triple bypass sx - Social History Smoking Status: Former smoker Alcohol use: Yes CD- Drugs: No Caffeine use: Yes Place of Residence: Home Review of Systems General: Unremarkable Eyes: Unremarkable ENT: Unremarkable Respiratory: Unremarkable Cardiovascular: Chest Pain, As per HPI Gastrointestinal: Unremarkable Genitourinary: Unremarkable Musculoskeletal: Unremarkable Integumentary: Unremarkable Neurological: Unremarkable Physical Examination Temp Pulse Resp BP Pulse Ox 97.0 F 65 18 132/66 93 04/28/23 08:00 04/28/23 09:47 04/28/23 08:00 04/28/23 09:47 04/28/23 08:00 General: Alert, In no apparent distress, Oriented x3 HEENT: Atraumatic, Normocephalic, PERRLA Neck: Supple, 2+ carotid pulse no bruit Respiratory: Clear to auscultation bilaterally, Normal air movement Cardiovascular: No edema, Normal pulses, Regular rate/rhythm Capillary refill: <2 Seconds Gastrointestinal: Normal bowel sounds, Soft and benign Musculoskeletal: No clubbing, No swelling Integumentary: No rashes, No breakdown Neurological: Normal speech, Normal tone Lymphatics: No axilla or inguinal lymphadenopathy External genitalia: Deferred Rectal: Deferred - Problems (1) Chest pain Current Visit: Yes Status: Acute Plan: Trend troponins, low salt diet, maximize medical management Qualifiers: Ischemic chest pain type: unspecified angina pectoris type (2) NSTEMI (non-ST elevated myocardial infarction) Current Visit: Yes Status: Acute Plan: Continue Heparin, ASA, blood pressure management, trend troponins, get ECHO and plan for staged cardiac cath. Physician Review: Patient Assessed, Agree with Above Assessment and Plan Critical Care: No
--- NOTE | 2023-04-28 13:45 | EKG ---
Test Date: 2023-04-24 Test Time: 10:51:00 Mask Former: MEASUREMENT RESULTS: Intervals: Rate: 76 RI: 154 QRSD: 94 QT: 396 QTc: 445 [place]: P: 49 RI: 154 QRS: -6 T: 70 INTERPRETIVE STATEMENTS: Normal sinus rhythm Voltage criteria for left ventricular hypertrophy ST elevation, consider lateral injury or acute infarct ACUTE DE Abnormal ECG Compared to ECG 04/24/2023 10:50:33 ST (T wave) deviation now present Myocardial infarct finding now present Ventricular premature complex(es) no longer present T-wave abnormality no longer present Possible ischemia no longer present Prolonged QT interval no longer present Electronically Signed On 04-28-23 13:31:48 REMOTE MORTGAGE UNDERWRITER by Enzo Duran
--- NOTE | 2023-04-28 13:45 | EKG ---
Test Date: 2023-04-24 Test Time: 10:54:53 Tinning Equipment Tender: MEASUREMENT RESULTS: Intervals: Rate: 87 DC: 156 QRSD: 86 QT: 394 QTc: 474 [place]: P: 41 DC: 156 QRS: -8 T: 45 INTERPRETIVE STATEMENTS: Sinus rhythm with frequent premature ventricular complexes Voltage criteria for left ventricular hypertrophy Nonspecific ST and T wave abnormality Prolonged QT Abnormal ECG Compared to ECG 04/24/2023 10:51:00 Ventricular premature complex(es) now present Prolonged QT interval now present Myocardial infarct finding no longer present ST (T wave) deviation still present Electronically Signed On 04-28-23 13:31:47 OPTICAL LABORATORY TECHNICIAN by Enzo Duran
--- NOTE | 2023-04-28 13:45 | EKG ---
Test Date: 2023-04-24 Test Time: 10:50:33 Aniline Press Worker: MEASUREMENT RESULTS: Intervals: Rate: 81 CT: 140 QRSD: 106 QT: 410 QTc: 476 [place]: P: 41 CT: 140 QRS: -1 T: 81 INTERPRETIVE STATEMENTS: Sinus rhythm with occasional premature ventricular complexes Moderate voltage criteria for LVH, may be normal variant T wave abnormality, consider lateral ischemia Prolonged QT Abnormal ECG Compared to ECG 04/23/2023 12:23:48 T-wave abnormality now present Prolonged QT interval now present ST (T wave) deviation no longer present Possible ischemia still present Electronically Signed On 04-28-23 13:31:53 MANAGER OF [facility]IED [facility] SERVICES by Enzo Duran
--- NOTE | 2023-04-28 14:03 | P.PN ---
Subjective Date of Service: 04/26/23 Chief Complaint: chest pain Subjective: No new changes Review of Systems 10-point ROS is otherwise unremarkable Cardiovascular: As per HPI Physical Examination - Vital Signs Temperature: 97.0 F Blood Pressure: 132/66 Pulse: 65 Respirations: 18 Pulse Ox (%): 93 - Physical Exam General: Alert, Oriented x3 HEENT: Atraumatic, Normocephalic, PERRLA Neck: Supple, 2+ carotid pulse no bruit Respiratory: Clear to auscultation bilaterally, Normal air movement Cardiovascular: No edema, Normal pulses Capillary refill: <2 Seconds Gastrointestinal: Normal bowel sounds, Soft and benign Musculoskeletal: No clubbing, No swelling Integumentary: No rashes Neurological: Normal gait, Normal speech Lymphatics: No axilla or inguinal lymphadenopathy External genitalia: Deferred Rectal: Deferred - Studies Medications List Reviewed: Yes Assessment And Plan - Current Problems (Diagnosis) (1) Chest pain Current Visit: Yes Status: Acute Plan: Trend troponins, low salt diet, maximize medical management. Pt will have staged cath today. Qualifiers: Ischemic chest pain type: unspecified angina pectoris type (2) NSTEMI (non-ST elevated myocardial infarction) Current Visit: Yes Status: Acute Plan: Continue Heparin, ASA, blood pressure management, trend troponins, get ECHO and plan for staged cardiac cath. Cardiac cath performed, diagonal 1 branch with occlusion, stent placed. severe mid RCA occlusion present. Continue Heparin, plavix, and ASA and will perform PCI tomorrow of RCA Physician Review: Patient Assessed, Agree with Above Assessment and Plan
--- NOTE | 2023-04-28 14:09 | P.PN ---
Subjective Date of Service: 04/27/23 Chief Complaint: chest pain Subjective: No new changes Review of Systems 10-point ROS is otherwise unremarkable General: Unremarkable Eyes: Unremarkable ENT: Unremarkable Respiratory: Unremarkable Cardiovascular: Other (denies chest pain) Gastrointestinal: Unremarkable Genitourinary: Unremarkable Physical Examination - Vital Signs Temperature: 97.0 F Blood Pressure: 132/66 Pulse: 65 Respirations: 18 Pulse Ox (%): 93 - Physical Exam General: Alert, In no apparent distress, Oriented x3 HEENT: Atraumatic, Normocephalic, PERRLA Neck: Supple, 2+ carotid pulse no bruit, JVD not distended Respiratory: Clear to auscultation bilaterally, Normal air movement Cardiovascular: No edema, Normal pulses Capillary refill: <2 Seconds Gastrointestinal: Normal bowel sounds, Soft and benign Musculoskeletal: No clubbing, No swelling Integumentary: No rashes Neurological: Normal gait, Normal speech, Normal tone External genitalia: Deferred Rectal: Deferred - Studies Medications List Reviewed: Yes Assessment And Plan - Current Problems (Diagnosis) (1) Chest pain Current Visit: Yes Status: Acute Plan: Trend troponins, low salt diet, maximize medical management. Pt will have staged cath today. Qualifiers: Ischemic chest pain type: unspecified angina pectoris type (2) NSTEMI (non-ST elevated myocardial infarction) Current Visit: Yes Status: Acute Plan: Continue Heparin, ASA, blood pressure management, trend troponins, get ECHO and plan for staged cardiac cath. Cardiac cath performed, diagonal 1 branch with occlusion, stent placed 04/26/23. severe mid RCA occlusion present. Continue Heparin, plavix, and ASA and will perform PCI today of RCA Plan to discharge in: 24 Hours - Code Status/Comfort Care Code Status Assessed: Yes (Full) Physician Review: Patient Assessed, Agree with Above Assessment and Plan
--- NOTE | 2023-04-28 14:16 | P.PN ---
Subjective Date of Service: 04/28/23 Chief Complaint: chest pain Subjective: Improving, Doing well Review of Systems 10-point ROS is otherwise unremarkable Cardiovascular: Other (no chest pain), As per HPI Gastrointestinal: Unremarkable Genitourinary: Unremarkable Musculoskeletal: Unremarkable Neurological: Unremarkable Physical Examination - Vital Signs Temperature: 97.0 F Blood Pressure: 132/66 Pulse: 65 Respirations: 18 Pulse Ox (%): 93 - Physical Exam General: Alert, In no apparent distress, Oriented x3 HEENT: Atraumatic, Normocephalic, PERRLA Neck: Supple, 2+ carotid pulse no bruit, JVD not distended Respiratory: Clear to auscultation bilaterally, Normal air movement Cardiovascular: No edema, Normal pulses, Regular rate/rhythm Capillary refill: <2 Seconds Gastrointestinal: Normal bowel sounds, Soft and benign Musculoskeletal: No clubbing, No swelling Integumentary: No breakdown Neurological: Normal gait, Normal speech, Normal tone External genitalia: Deferred Rectal: Deferred - Studies Medications List Reviewed: Yes Assessment And Plan - Current Problems (Diagnosis) (1) Chest pain Current Visit: Yes Status: Acute Plan: low salt diet, Plavix 75mg po daily, ASA 81mg po daily Qualifiers: Ischemic chest pain type: unspecified angina pectoris type (2) NSTEMI (non-ST elevated myocardial infarction) Current Visit: Yes Status: Acute Plan: Two stents placed, blood flow restored. Symptoms resolved. Encouraged pt to never miss a dose of Plavix or ASA F/u in clinic in one week. Call office for appointment. F/u PCP as recommended. Cardiology signs off for this admission Physician Review: Patient Assessed, Agree with Above Assessment and Plan
== END 2023-04-28 13:30 | disposition home or self-care (01) | DRG 322 ==
LOC: ER 11:43 → ERHOLD 15:02 → 2ND 16:47 → OBSVTOIN 04-25 19:31
PROVIDERS: ADMIT Hospitalist; ATTEND Hospitalist
PROC: 027034Z Dilation of Coronary Artery, One Artery with Drug-eluting Intraluminal Device, Percutaneous Approach (ICD-10-PCS; principal; 2023-04-24)
PROC: 4A023N7 Measurement of Cardiac Sampling and Pressure, Left Heart, Percutaneous Approach (ICD-10-PCS; 2023-04-24)
PROC: B2111ZZ Fluoroscopy of Multiple Coronary Arteries using Low Osmolar Contrast (ICD-10-PCS; 2023-04-24)
PROC: 027034Z Dilation of Coronary Artery, One Artery with Drug-eluting Intraluminal Device, Percutaneous Approach (ICD-10-PCS; 2023-04-27)
PROC: B2101ZZ Fluoroscopy of Single Coronary Artery using Low Osmolar Contrast (ICD-10-PCS; 2023-04-27)
DX: I21.4 Non-ST elevation (NSTEMI) myocardial infarction (principal); I10 Essential (primary) hypertension; E78.5 Hyperlipidemia, unspecified; K21.9 Gastro-esophageal reflux disease without esophagitis; K44.9 Diaphragmatic hernia without obstruction or gangrene; I25.119 Atherosclerotic heart disease of native coronary artery with unspecified angina pectoris; Z85.3 Personal history of malignant neoplasm of breast; Z88.5 Allergy status to narcotic agent; Z79.82 Long term (current) use of aspirin; Z79.02 Long term (current) use of antithrombotics/antiplatelets; Z90.12 Acquired absence of left breast and nipple; Z79.52 Long term (current) use of systemic steroids; Z87.891 Personal history of nicotine dependence; Z79.899 Other long term (current) drug therapy; Z90.710 Acquired absence of both cervix and uterus
CPT/HCPCS: 36415; 71045; 71275; 76937; 80048; 80061; 80076; 83735; 83880; 84484; 85025; 85347; 85610; 85730; 93005; 93306; 93454; 93458; 96374; 99152; 99153; 99285; C1725; C1887; C1893; C9113; C9600; G0378; J0153; J0360; J0461; J1644; J1940; J2001; J2250; J2405; J3010; J7030; J7040; Q9966; Q9967